=== PATIENT | female | born 1965 | race Caucasian/White ===

== ENCOUNTER 2019-08-22 19:09 | Emergency (ER) | payer OTHER ==
[~2019-08-22] VITALS: Ht 167.6 cm; Wt 62.6 kg
--- OUTSIDE RECORDS SUMMARY | 2019-08-22 19:12 | XMS REPORT ---
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 Allergies, Adverse Reactions, Alerts This patient has no known allergies or adverse reactions. Medications This patient has no known medications. Encounters Start Date/Time End Date/Time Encounter Type Admission Type Attending [facility] Care Department Encounter ID 2019-04-20 00:00:00 2019-04-20 00:00:00 Outpatient [facility] [id number] 2018-12-16 00:00:00 2018-12-16 00:00:00 Outpatient [facility] [id number] 2018-10-07 00:00:00 2018-10-07 00:00:00 Outpatient [facility] [id number] 2018-10-07 00:00:00 2018-10-07 00:00:00 Outpatient [facility] [id number] 2018-09-30 00:00:00 2018-09-30 00:00:00 Outpatient [facility] [id number] 2018-09-17 00:00:00 2018-09-17 00:00:00 Outpatient [facility] [id number] 2018-09-17 00:00:00 2018-09-17 00:00:00 Outpatient [facility] [id number] 2018-09-02 08:34:37 2018-09-02 08:34:37 Outpatient [facility] [id number] 2018-01-29 00:00:00 2018-01-29 00:00:00 Outpatient [facility] [id number] 2018-01-08 00:00:00 2018-01-08 00:00:00 Outpatient [facility] [id number] 2018-01-02 00:00:00 2018-01-02 00:00:00 Outpatient [facility] [id number] 2017-12-24 00:00:00 2017-12-24 00:00:00 Outpatient [facility] [id number] 2017-12-15 00:00:00 2017-12-15 00:00:00 Outpatient [facility] [id number] 2017-11-11 09:58:27 2017-11-11 09:58:27 Outpatient [facility] [id number] 2017-11-10 10:38:54 2017-11-10 10:38:54 Outpatient [facility] [id number] 2017-11-10 00:00:00 2017-11-10 00:00:00 Outpatient [facility] [id number] 2017-11-07 15:11:30 2017-11-07 15:11:30 Outpatient [facility] [id number] 2017-10-20 00:00:00 2017-10-20 00:00:00 Outpatient [facility] [id number] 2017-10-15 00:00:00 2017-10-15 00:00:00 Outpatient [facility] [id number] 2017-10-02 08:24:21 2017-10-02 08:24:21 Outpatient [facility] [id number] 2017-08-20 00:00:00 2017-08-20 00:00:00 Outpatient [facility] [id number] 2017-07-16 14:06:19 2017-07-16 14:06:19 Outpatient [facility] [id number] 2017-07-08 13:17:33 2017-07-08 13:17:33 Outpatient [facility] [id number] 2017-06-20 13:43:17 2017-06-20 13:43:17 Outpatient [facility] [id number] 2017-05-08 00:00:00 2017-05-08 00:00:00 Outpatient [facility] [id number] 2017-04-14 12:48:34 2017-04-14 12:48:34 Outpatient [facility] [id number] 2017-03-25 00:00:00 2017-03-25 00:00:00 Outpatient [facility] [id number] 2017-03-21 08:24:14 2017-03-21 08:24:14 Outpatient [facility] [id number] 2017-03-18 15:15:55 2017-03-18 15:15:55 Outpatient [facility] [id number] 2017-02-04 14:30:38 2017-02-04 14:30:38 Outpatient [facility] [id number] 2017-02-04 14:23:16 2017-02-04 14:23:16 Outpatient [facility] [id number] 2017-02-03 00:00:00 2017-02-03 00:00:00 Outpatient [facility] [id number] 2017-01-14 00:00:00 2017-01-14 00:00:00 Outpatient [facility] [id number] 2017-01-08 14:20:34 2017-01-08 14:20:34 Outpatient [facility] [id number] 2016-12-27 00:00:00 2016-12-27 00:00:00 Outpatient [facility] [id number] 2016-12-06 00:00:00 2016-12-06 00:00:00 Outpatient [facility] [id number] 2016-11-26 00:00:00 2016-11-26 00:00:00 Outpatient [facility] [id number] 2016-11-21 00:00:00 2016-11-21 00:00:00 Outpatient [facility] [id number] 2016-11-06 00:00:00 2016-11-06 00:00:00 Outpatient [facility] [id number] 2016-09-25 14:03:17 2016-09-25 14:03:17 Outpatient [facility] [id number] 2016-09-20 00:00:00 2016-09-20 00:00:00 Outpatient [facility] [id number] 2016-09-05 10:06:06 2016-09-05 10:06:06 Outpatient [facility] [id number] 2016-08-13 14:20:25 2016-08-13 14:20:25 Outpatient [facility] [id number] 2016-07-16 08:28:51 2016-07-16 08:28:51 Outpatient [facility] [id number] 2016-07-16 08:02:10 2016-07-16 08:02:10 Outpatient [facility] [id number] 2016-07-15 14:49:54 2016-07-15 14:49:54 Outpatient [facility] [id number]
[2019-08-22 20:23] LABS: STREPTOCOCCUS GRP A ANTIGEN NEGATIVE (NEGATIVE)
[2019-08-22 20:34] LABS: INFLUENZAE A&B ANTIGEN (RAPID) NEGATIVE (NEGATIVE)
[2019-08-22 21:14] VITALS: BP 168/88
--- NOTE | 2019-08-22 21:47 | Diagnostic Imaging Report ---
EXAMINATION: CHEST 2 VIEWS INDICATION: Sore throat, chest pain COMPARISON: None FINDINGS: TUBES and LINES: None. LUNGS: Normal lung volumes. Mild central bronchial wall thickening. No consolidations. PLEURA: No pleural effusion or pneumothorax. HEART AND MEDIASTINUM: The cardiomediastinal silhouette is unremarkable. BONES AND SOFT TISSUES: No acute osseous lesion. Soft tissues are unremarkable. UPPER ABDOMEN: No free air under the diaphragm. IMPRESSION: Subtle findings of bronchitis. Signed by: Abhishek Desai DO on 08/22/2019 9:44 PM
== END 2019-08-22 21:16 | disposition home or self-care (01) ==
LOC: ER 19:09
DX: R50.9 Fever, unspecified (principal); R05 Cough; J20.9 Acute bronchitis, unspecified
CPT/HCPCS: 71046; 83518; 87070; 87400; 99283

== ENCOUNTER 2019-09-17 03:22 | Emergency (ER) | payer OTHER ==
[~2019-09-17] VITALS: Ht 167.6 cm; Wt 62.6 kg
--- OUTSIDE RECORDS SUMMARY | 2019-09-17 03:26 | XMS REPORT ---
Author Author [facility] t Organization [facility] Address [address] [place] [address] Phone Unavailable Care Team Providers Care Satin Finisher Name Role Phone NO, PCP PCP Unavailable EDUARD CARDOZA Attphys Unavailable Concepcion SERRANO, P Yolanda Attphys Shay Boateng MD Attphys Payers Payer Name Policy Type Policy Number Effective Date Expiration Date Chino davidson [facility] MEDICAID HMOAMERIGROUP SSIxxx [id number] [address] [address] xxxxxxxxx 2018 00:0 0:00 [facility] [place] MEDICAIDTP13 SSI RECIPIENTxxxxxxxx [id number] [address] xxxxxxxxx 2016 00:00:00 [facility] Problems Condition Name Condition Details Condition Category Status Onset Date Resolution Date Last Treatment Date Treating Clinician Comments Source Prediabetes Prediabetes Disease Active 2017-11-07 00:00:00 [facility] Tobacco use disorder Tobacco use disorder Disease Active 00:00:00 [facility] Lumbar disc disorder Lumbar disc disorder Disease Active 00:00:00 [facility] Protruded lumbar disc Protruded lumbar disc Disease Active 201 09-13-22 00:00:00 [facility] Sciatica of right side Sciatica of right side Disease Active 2015-04-26 00:00:00 [facility] Levoscoliosis Levoscoliosis Disease Active 2015-04-26 00:00:00 [facility] Hypertension Hypertension Disease Active [facility] Hyperlipidemia Hyperlipidemia Disease Active [facility] Bipolar disorder Bipolar disorder Disease Active [facility] Depression Depression Disease Active [facility] GERD (gastroesophageal reflux disease) GERD (gastroesophagea l reflux disease) Disease Active [facility] Allergies, Adverse Reactions, Alerts Allergy Name Allergy Type Status Severity Reaction(s) Onset Date Inacti ve Date Treating Clinician Comments Source morphine DA Active U 2019-09-07 00:00:00 [facility] morphine DA Active U 2019-02-23 00:00:00 [facility] No Known Allergies DA Active U 2018-11-28 00:00:00 [facility] No Known Allergies DA Active U 2018-04-15 00:00:00 [facility] No Known Allergies DA Active U 2017-05-13 00:00:00 [facility] Codeine Propensity to adverse reactions to drug Active Hives 2013-09-14 00:00:00 [facility] Morphine Propensity to adverse reactions to drug Active Hives 2013-09-14 00:00:00 [facility] Family History Family Member Diagnosis Comments Start Date Stop Date Source Natural father Arthritis [facility] Natural [facility] Natural father Hypertension [facility] Maternal aunt Diabetes [facility] Natural mother Arthritis [facility] Natural mother Asthma [facility] Natural mother [facility]ension [facility] Social History Social Habit Start Date Stop Date Quantity Comments Source History of tobacco use Cigarette Smoker [facility] Cigarettes smoked current (pack per day) - Reported 00:00:00 2018-10-07 00:00:00 [facility] Cigarette pack-years 2018-10-07 00:00:00 2018-10-07 00:00:00 [facility] Alcohol intake 2018-10-07 00:00:00 2018-10-07 00:00:00 [facility] History SDOH Food Worry 2017-11-07 00:00:00 2017-11-07 00:00:00 2 [facility] History SDOH Food Scarcity 2017-11-07 00:00:00 2017-11-07 00:00:00 2 [facility] Tobacco Comment 2013-09-14 00:00:00 2013-09-14 00:00:00 smoke a pack of cigarettes a day [facility] Smoking Status Start Date Stop Date Source Current every day smoker 2018-10-07 00:00:00 [facility] Medications Ordered Medication Name Filled Medication Name Start Date Stop Da te Current Medication? Ordering Clinician Indication Dosage Frequency Signature (SIG) Comments Components Source lisinopriL (PRINIVIL) 20 mg tablet 2019-07-27 00:00:00 Y es [id number] 20mg QD Take 1 tablet by mouth daily. [facility] fenofibrate nanocrystallized (TRICOR) 145 mg tablet 09-02 00:00:00 Yes [id number] 145mg QD Take 1 tablet by mouth daily. [facility] atorvastatin (LIPITOR) 40 mg tablet 2018-09-02 00:00:00 Yes [id number] 40mg Take 1 tablet by mouth at bedtime nightly For cholesterol. [facility] gabapentin (NEURONTIN) 300 mg capsule 2018-09-02 00:00:00 Yes [id number] 300mg Take 1 capsule by mouth 3 times daily For back pain. [facility] albuterol (PROVENTIL) 2.5 mg /3 mL (0.083 %) nebulizer solut ion 2018-09-02 00:00:00 Yes [id number] 2.5mg Inhale 3 mL by mouth every 6 hours as needed for Shortness of Breath. [facility] ealt hydrOXYzine (ATARAX) 25 mg tablet 2018-09-02 00:00:00 Ye s [id number] 25mg Take 1 tablet by mouth nightly at bedtime as needed for Insomnia . [facility] omeprazole (PRILOSEC) 20 mg delayed release capsule 09-02 00:00:00 Yes [id number] 20mg QD Take 1 capsule by mouth daily. [facility] sertraline (ZOLOFT) 100 mg tablet 2018-07-28 00:00:00 Ye chino [id number] 100mg QD Take 1 tablet by mouth daily. [facility] ibuprofen (MOTRIN) 800 mg tablet 2017-07-16 00:00:00 Yes [id number] 800mg Take 1 tablet by mouth every 8 hours as needed for Pain (take wi th food). [facility] albuterol (VENTOLIN HFA,PROVENTIL HFA,PROAIR HFA) 90 mcg/act uation inhaler 2017-07-16 00:00:00 Yes [id number] 2{puff} Inhale 2 Puffs by mouth 4 times daily as needed for Wheezing or Shortness of Breath. [facility] lisinopril (PRINIVIL) 20 mg tablet 2017-07-16 00:00:00 202 00:00:00 No [id number] 20mg QD Take 1 tablet by mouth daily. [facility] LONGS FISH OIL (FISH OIL) 1,000 mg cap 2015-04-26 00:00:00 Yes [id number] Take by mouth. [facility] Immunizations Ordered Immunization Name Filled Immunization Name Date Status Comments Source Influenza Vaccine, Seasonal, Injectable 2017-03-18 00:00:0 0 Completed [facility] Ketorolac 30mg/1ml Inj (x ) 2015-06-20 00:00:00 [facility] Ketorolac 30mg/1ml Inj (x ) 2015-04-26 00:00:00 [facility] Influenza Vaccine 2015-04-16 00:00:00 Completed [facility] Influenza Vaccine 2014-04-13 00:00:00 [facility] Td <Unspecified> 2014-03-02 00:00:00 [facility] Procedures Procedure Date / Time Performed Performing Clinician [facility] e X-ray of chest, two views 2019-08-22 00:00:00 MIRIAM BARRIENTOS [facility] Plan of Care Planned Activity Planned Date Details Comments Source Future Scheduled Test 2020-02-03 00:00:00 IMM Influenza Seas onal Feb to July (>/= 19 yrs) [code = IMM Influenza Seasonal Feb to July (>/= 19 yrs)] [facility] Scheduled Test 2018-04-14 00:00:00 Colorectal Cancer Scrn Annual (FIT/FOBT) Age 50 to 75 [code = Colorectal Cancer Scrn Annual (FIT/FOBT) Age 50 to 75] [facility] Scheduled Test 2018-02-04 00:00:00 Breast Cancer Scrn (Yearly) [code = Breast Cancer Scrn (Yearly)] [facility] Encounters Start Date/Time End Date[facility] ID Source 2019-04-20 00:00:00 2019-04-20 00:00:00 Outpatient [facility] [id number] [facility] 2018-12-16 00:00:00 2018-12-16 00:00:00 Outpatient [facility] [id number] [facility] 2018-10-07 00:00:00 2018-10-07 00:00:00 Outpatient [facility] [id number] [facility] 2018-10-07 00:00:00 2018-10-07 00:00:00 Outpatient [facility] [id number] [facility] 2018-09-30 00:00:00 2018-09-30 00:00:00 Outpatient [facility] [id number] [facility] 2018-09-17 00:00:00 2018-09-17 00:00:00 Outpatient [facility] [id number] [facility] 2018-09-17 00:00:00 2018-09-17 00:00:00 Outpatient [facility] [id number] [facility] 2018-09-02 08:34:37 2018-09-02 08:34:37 Outpatient [facility] [id number] [facility] 2018-01-29 00:00:00 2018-01-29 00:00:00 Outpatient [facility] [id number] [facility] 2018-01-08 00:00:00 2018-01-08 00:00:00 Outpatient [facility] [id number] [facility] 2018-01-02 00:00:00 2018-01-02 00:00:00 Outpatient [facility] [id number] [facility] 2017-12-24 00:00:00 2017-12-24 00:00:00 Outpatient [facility] [id number] [facility] 2017-12-15 00:00:00 2017-12-15 00:00:00 Outpatient [facility] [id number] [facility] 2017-11-11 09:58:27 2017-11-11 09:58:27 Outpatient [facility] [id number] [facility] 2017-11-10 10:38:54 2017-11-10 10:38:54 Outpatient [facility] [id number] [facility] 2017-11-10 00:00:00 2017-11-10 00:00:00 Outpatient [facility] [id number] [facility] 2017-11-07 15:11:30 2017-11-07 15:11:30 Outpatient [facility] [id number] [facility] 2017-10-20 00:00:00 2017-10-20 00:00:00 Outpatient [facility] [id number] [facility] 2017-10-15 00:00:00 2017-10-15 00:00:00 Outpatient [facility] [id number] [facility] 2017-10-02 08:24:21 2017-10-02 08:24:21 Outpatient [facility] [id number] [facility] 2017-08-20 00:00:00 2017-08-20 00:00:00 Outpatient [facility] [id number] [facility] 2017-07-16 14:06:19 2017-07-16 14:06:19 Outpatient [facility] [id number] [facility] 2017-07-08 13:17:33 2017-07-08 13:17:33 Outpatient [facility] [id number] [facility] 2017-06-20 13:43:17 2017-06-20 13:43:17 Outpatient [facility] [id number] [facility] 2017-05-08 00:00:00 2017-05-08 00:00:00 Outpatient [facility] [id number] [facility] 2017-04-14 12:48:34 2017-04-14 12:48:34 Outpatient [facility] [id number] [facility] 2017-03-25 00:00:00 2017-03-25 00:00:00 Outpatient [facility] [id number] [facility] 2017-03-21 08:24:14 2017-03-21 08:24:14 Outpatient [facility] [id number] [facility] 2017-03-18 15:15:55 2017-03-18 15:15:55 Outpatient [facility] [id number] [facility] 2017-02-04 14:30:38 2017-02-04 14:30:38 Outpatient [facility] [id number] [facility] 2017-02-04 14:23:16 2017-02-04 14:23:16 Outpatient [facility] [id number] [facility] 2017-02-03 00:00:00 2017-02-03 00:00:00 Outpatient [facility] [id number] [facility] 2017-01-14 00:00:00 2017-01-14 00:00:00 Outpatient [facility] [id number] [facility] 2017-01-08 14:20:34 2017-01-08 14:20:34 Outpatient [facility] [id number] [facility] 2016-12-27 00:00:00 2016-12-27 00:00:00 Outpatient [facility] [id number] [facility] 2016-12-06 00:00:00 2016-12-06 00:00:00 Outpatient [facility] [id number] [facility] 2016-11-26 00:00:00 2016-11-26 00:00:00 Outpatient [facility] [id number] [facility] 2016-11-21 00:00:00 2016-11-21 00:00:00 Outpatient [facility] [id number] [facility] 2016-11-06 00:00:00 2016-11-06 00:00:00 Outpatient [facility] [id number] [facility] 2016-09-25 14:03:17 2016-09-25 14:03:17 Outpatient [facility] [id number] [facility] 2016-09-20 00:00:00 2016-09-20 00:00:00 Outpatient [facility] [id number] [facility] 2016-09-05 10:06:06 2016-09-05 10:06:06 Outpatient [facility] [id number] [facility] 2016-08-13 14:20:25 2016-08-13 14:20:25 Outpatient [facility] [id number] [facility] 2016-07-16 08:28:51 2016-07-16 08:28:51 Outpatient [facility] [id number] [facility] 2016-07-16 08:02:10 2016-07-16 08:02:10 Outpatient [facility] [id number] [facility] 2016-07-15 14:49:54 2016-07-15 14:49:54 Outpatient [facility] [id number] [facility] Results Test Description Test Time Test Comments Results Result Comments Source - CT ABD PELVIS W/O CONT 2019-09-16 02:57:00 N adele: YAKOV QUIROZ [facility] : 1965 Age/S: 53 / F [address] Unit #: [id number] Loc: [place] [address] Phys: Rachel Turpin DO Acct: [id number] Dis Date: Status: PRE ER PHONE #: [phone] Exam Date: 09/16/2019 0240 FAX #: [phone] Reason: FLANK PAIN, R/O KIDNEY STONE EXAMS: CPT CODE: [id number] CT ABD PELVIS W/O CONT 51135 AFTER HOURS SERVICE ON: 09/16/2019 2:[address] Scan of the Abdomen and Pelvis Without Contrast Location Code M12 History: FLANK PAIN, R/O KIDNEY STONE Technique: Axial and reconstructed coronal scans were performed on a helical scanner pre oral and IV contrast. Study is limited secondary to lack of oral and IV contrast. One or more of the following dose reduction techniques were used: Automated exposure control, adjustment of the mA and/or kV according to patient size, and/or utilization of iterative reconstruction technique. Findings: Study is motion degraded. LIVER: No significant findings. GALLBLADDER/BILIARY: No significant findings. PANCREAS: No significant findings. SPLEEN: No significant findings. ADRENALS: No significant findings. KIDNEYS: Right kidney is unremarkable. There is no hydronephrosis or nephrolithiasis. There is mild fullness in the left renal collecting system and perinephric stranding. There is also mild fullness in the left ureter but no evidence of a ureteral or bladder calculus. Finding may be consistent with a recently passed calculus. BLADDER: Mild areas noted in the bladder lumen likely from recent catheterization. There is no bladder wall thickening. GASTROINTESTINAL: No significant findings. The appendix is unremarkable. OTHER: Uterus is surgically absent.. IMPRESSION: Mild fullness in the left renal collecting system without a urinary calculus, likely from a recently passed calculus. PAGE 1 Signed Report (CONTINUED) Name: YAKOV QUIROZ [facility] : 1965 Age/S: 53 / F [address] Unit #: [id number] Loc: [place] [address] Phys: Rachel Turpin DO Acct: [id number] Dis Date: Status: PRE ER PHONE #: [phone] Exam Date: 09/16/2019 0240 FAX #: [phone] Reason: FLANK PAIN, R/O KIDNEY STONE EXAMS: CPT CODE: [id number] CT ABD PELVIS W/O CONT 97317 <Continued> at 0257 Reported and signed by: Werner Sandoval M.D. CC: Rachel Turpin DO Technologist:ANDREW GENTILE RT CTDI: DLP: Trnscb Date/Time: 09/16/2019 (256) [email or web address] Orig Print D/T: S: 09/16/2019 (0305) PAGE 2 Signed Report - CT ABD PELVIS W/O CONT 2019-09-16 02:57:00 N adele: GABRIELLAYAKOV [facility] : 1965 Age/S: 53 / F [address] [facility] Unit #: [id number] Loc: [place] [address] Phys: Rachel Turpin DO Acct: [id number] Dis Date: Status: PRE ER PHONE #: [phone] Exam Date: 09/16/2019 0240 FAX #: [phone] Reason: FLANK PAIN, R/O KIDNEY STONE EXAMS: CPT CODE: [id number] CT ABD PELVIS W/O CONT 20468 AFTER HOURS SERVICE ON: 09/16/2019 2:[address] Scan of the Abdomen and Pelvis Without Contrast Location Code M12 History: FLANK PAIN, R/O KIDNEY STONE Technique: Axial and reconstructed coronal scans were performed on a helical scanner pre oral and IV contrast. Study is limited secondary to lack of oral and IV contrast. One or more of the following dose reduction techniques were used: Automated exposure control, adjustment of the mA and/or kV according to patient size, and/or utilization of iterative reconstruction technique. Findings: Study is motion degraded. LIVER: No significant findings. GALLBLADDER/BILIARY: No significant findings. PANCREAS: No significant findings. SPLEEN: No significant findings. ADRENALS: No significant findings. KIDNEYS: Right kidney is unremarkable. There is no hydronephrosis or nephrolithiasis. There is mild fullness in the left renal collecting system and perinephric stranding. There is also mild fullness in the left ureter but no evidence of a ureteral or bladder calculus. Finding may be consistent with a recently passed calculus. BLADDER: Mild areas noted in the bladder lumen likely from recent catheterization. There is no bladder wall thickening. GASTROINTESTINAL: No significant findings. The appendix is unremarkable. OTHER: Uterus is surgically absent.. IMPRESSION: Mild fullness in the left renal collecting system without a urinary calculus, likely from a recently passed calculus. PAGE 1 Signed Report (CONTINUED) Name: YAKOV QUIROZ [facility] : 1965 Age/S: 53 / F [address] [facility] Unit #: [id number] Loc: [place] [address] Phys: Rachel Turpin DO Acct: [id number] Dis Date: Status: PRE ER PHONE #: [phone] Exam Date: 09/16/2019 0240 FAX #: [phone] Reason: FLANK PAIN, R/O KIDNEY STONE EXAMS: CPT CODE: [id number] CT ABD PELVIS W/O CONT 74665 <Continued> at 0257 Reported and signed by: Werner Sandoval M.D. CC: Rachel Turpin DO Technologist:RT KELSI CTDI: DLP: Trnscb Date/Time: 09/16/2019 (256) [email or web address] Orig Print D/T: S: 09/16/2019 (0301) PAGE 2 Signed Report - XR CHEST 1 V 2019-09-16 02:26:00 FAX: Rachel Turpin DO [place]: B St: PRE -- [facility] 1965 Age/S: 53/F [address] Unit #: [id number] Loc: [place] [address] Phys: Rachel Turpin DO Acct: [id number] Dis Date: Status: PRE ER PHONE #: [phone] Exam Date: 09/16/2019216 FAX #: [phone] Reason: CHEST PAIN EXAMS: CPT CODE: [id number] XR CHEST 1 V 96037 AFTER HOURS SERVICE ON: 09/16/2019 2:25 AM AP Portable Chest Location Code M12 HISTORY: CHEST PAIN FINDINGS: Study is limited by shallow inspiration. There are no pleural effusions. There is no pneumothorax. Cardiac silhouette and mediastinum appear within normal limits. IMPRESSION: No active pulmonary findings. at 0226 Reported and signed by: Werner Sandoval M.D. 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 LUNGS: Normal lung volumes. Mild central bronchial wall thickening. No consolidations. PLEURA: No pleural effusion or pneumothorax. HEART AND MEDIASTINUM: The cardiomediastinal silhouette is unremarkable. BONES AND SOFT TISSUES: No acute osseous lesion. Soft tissues are unremarkable. UPPER ABDOMEN: No free air under the diaphragm. IMPRESSION: Subtle findings of bronchitis. Signed by: Abhishek Salazar DO on 08/22/2019 9:44 PM Dictated By: ABHISHEK SALAZAR DO 43 Transcribed By: BASHIR on 08/22/192143 COPY TO: MIRIAM BARRIENTOS NP Influenza Virus Types A,B Antigen 2019-08-22 20:34:00 Test Item Influenza Virus Types A,B Antigen (test code = 46115-3) [facility] [id number] 20:23:00* Test Item Value Reference Range Interpretation Comments Group A Streptococcus Screen (test code = 69538-5) NEGATIVE NEG ATIVE [facility]- XR WRIST 3 + V [id number] 00:05:00 FAX: Lashanda Cotto NP [place]: St: REG Name: YAKOV HERNANDES [facility] : [birth year] Age/S: 53/F [address] [facility] Unit #: [id number] Loc: [place] [address] Phys: Lashanda Cotto NP Acct: [id number] Dis Date: Status: REG ER PHONE #: [phone] Exam Date: 05/26/2019 0000 FAX #: [phone] Reason: fall, pain EXAMS: CPT CODE: [id number] XR WRIST 3 + V RT [id number] LOCATION: Q15 HISTORY: 53-year-old female who suffered a fall. COMMENT: Radiographs of this patient's left knee, right shoulder, and right wrist w ere obtained. LEFT KNEE: Frontal, oblique, and later al projections were included. The skeleton is intact. The joint sp aces and soft tissues are unremarkable. RIGHT SHOULDER: Frontal projections were obtained with the arm internally and ex ternally rotated. A scapular Y-view was included. The skeleton is intact. The joint spaces and soft tissues are unremarkable. RIGHT WRIST: Frontal, oblique, and lateral radiographs were includ ed. The skeleton is intact. The joint spaces and soft tissues are u nremarkable. IMPRESSION: Unremarkable radiogra phic examinations of this patient's left knee, right shoulder, and right wrist. at 0005 Reported and signed by: Lorenzo Bourne M.D. CC: Lashanda Cotto NP Technologist: Sherley Medrano Trnscrd Date/Time/By: 05/27/2019 (0005) : By: [email or web address] Orig Print D/T: S: 05/27/2019 (0008) PAGE 1 Signed Report - XR SHOULDER 2 + V RT 2019-05-27 00:05:00 FAX: Lashanda Cotto NP [place]: St: REG Name: Chet BEALYAKOV LOWRY [facility] : [birth year] Age/S: 53/F [address] [facility] Unit #: [id number] Loc: [place] [address] Phys: Lashanda Cotto NP Acct: [id number] Dis Date: Status: REG ER PHONE #: [phone] Exam Date: 05/26/2019 0000 FAX #: [phone] Reason: fall, pain EXAMS: CPT CODE: [id number] XR SHOULDER 2 + V RT [id number] LOCATION: Q15 HISTORY: 53-year-old female who suffered a fall. COMMENT: Radiographs of this patient's left knee, right shoulder, and right wrist w ere obtained. LEFT KNEE: Frontal, oblique, and later al projections were included. The skeleton is intact. The joint sp aces and soft tissues are unremarkable. RIGHT SHOULDER: Frontal projections were obtained with the arm internally and ex ternally rotated. A scapular Y-view was included. The skeleton is intact. The joint spaces and soft tissues are unremarkable. RIGHT WRIST: Frontal, oblique, and lateral radiographs were includ ed. The skeleton is intact. The joint spaces and soft tissues are u nremarkable. IMPRESSION: Unremarkable radiogra phic examinations of this patient's left knee, right shoulder, and right wrist. at 0005 Reported and signed by: Lorenzo Bourne M.D. CC: Lashanda Cotto NP Technologist: Sherley Medrano [facility] Date/Time/By: 05/27/2019 (0005) : By: [email or web address] Orig Print D/T: S: 05/27/2019 (0008) PAGE 1 Signed Report - XR KNEE 3 V [id number] 00:05:00 FAX: Lashanda Cotto NP [place]: St: REG Name: YAKOV HERNANDES [facility] : [birth year] Age/S: 53/F [address] [facility] Unit #: [id number] Loc: [place] [address] Phys: Lashanda Cotto NP Acct: [id number] Dis Date: Status: REG ER PHONE #: [phone] Exam Date: 05/26/2019 0000 FAX #: [phone] Reason: fall, pain EXAMS: CPT CODE: [id number] XR KNEE 3 [place] LT [address] LOCATION: Q15 HISTORY: 53-year-old female who suffered a fall. COMMENT: Radiographs of this patient's left knee, right shoulder, and right wrist w ere obtained. LEFT KNEE: Frontal, oblique, and later al projections were included. The skeleton is intact. The joint sp aces and soft tissues are unremarkable. RIGHT SHOULDER: Frontal projections were obtained with the arm internally and ex ternally rotated. A scapular Y-view was included. The skeleton is intact. The joint spaces and soft tissues are unremarkable. RIGHT WRIST: Frontal, oblique, and lateral radiographs were includ ed. The skeleton is intact. The joint spaces and soft tissues are u nremarkable. IMPRESSION: Unremarkable radiogra phic examinations of this patient's left knee, right shoulder, and right wrist. at 0005 Reported and signed by: Lorenzo Bourne M.D. CC: Lashanda Cotto NP Technologist: Sherley Medrano Trniard Date/Time/By: 05/27/2019 (0005) : By: [email or web address] Orig Print D/T: S: 05/27/2019 (0008) PAGE 1 Signed Report - XR SCAPULA COMP RT 2019-02-23 16:35:00 FAX: Myla Cervantes NP [place]: St: REG Name: Chet BEALYAKOV LOWRY [facility] : [birth year] Age/S: 53/F [address] Unit #: [id number] Loc: [place] [address] Phys: Myla Cervantes NP Acct: [id number] Dis Date: Status: REG ER PHONE #: [phone] Exam Date: 02/23/2019 1541 FAX #: [phone] Reason: pain status post fall EXAMS: CPT CODE: [id number] [place] [address] CLINICAL HISTORY: pain TECHNIQUE: Right-sided rib series as well as 2 views of the right scapula and 3 views of the right shoulder COMPARISON: None FINDINGS: No fracture is seen in the scanned right upper extremity or in the right hemithorax. Specifically no displaced rib fractures are seen. The glenohumeral and acromial clavicular joints are within normal limits. The right lung and the visualized portion of the left lung are clear. IMPRESSION: No right-sided rib fracture and no fracture or dislocation in the scanned right upper extr emity. Location: [facility] at 1635 Reported and signed by: Tj Cope MD CC: Myla Cervantes NP Technologist: MELCHOR LEDBETTER RT(R); Radha Delacruz RT(R) Trnscrd Date/Time/By: 02/23/2019 (2883) : By: [email or web address] Orig Print D /T: S: 02/23/2019 (6372) PAGE 1 S igned Report - XR SHOULDER 2 + V [id number] 16:35:00 FAX: Myla Cervantes NP [place]: St: REG Name: Chet BEALERYAKOV [facility] : [birth year] Age/S: 53/F [address] [facility] Unit #: [id number] Loc: [place] [address] Phys: Myla Cervantes NP Acct: [id number] Dis Date: Status: REG ER PHONE #: [phone] Exam Date: 02/23/2019 1541 FAX #: [phone] Reason: pain EXAMS: CPT CODE: [id number] XR SHOULDER 2 + V RT [address]891 CLINICAL HISTORY: pain TECHNIQUE: Right-sided rib series as well as 2 views of the right scapula and 3 views of the right shoulder COMPARISON: None FINDINGS: No fracture is seen in the scanned right upper extremity or in the right hemithorax. Specifically no displaced rib fractures are seen. The glenohumeral and acromial clavicular joints are within normal limits. The right lung and the visualized portion of the left lung are clear. IMPRESSION: No right-sided rib fracture and no fracture or dislocation in the scanned right upper extr emity. Location: [facility] at 1635 Reported and signed by: Tj Cope MD CC: Myla Cervantes NP Technologist: RT GABRIEL(R) Trnscrd Date/Time/By: 02/23/2019 (6337) : By: [email or web address] Orig Print D /T: S: 02/23/2019 (5385) PAGE 1 S igned Report - XR RIBS UNI 2 V [id number] 16:35:00 FAX: Myla Cervantes NP [place]: St: REG Name: YAKOV HERNANDES [facility] : [birth year] Age/S: 53/F [address] [facility] Unit #: [id number] Loc: [place] [address] Phys: Myla Cervantes NP Acct: [id number] Dis Date: Status: REG ER PHONE #: [phone] Exam Date: 02/23/2019 1549 FAX #: [phone] Reason: pain EXAMS: CPT CODE: [id number] XR RIBS UNI 2 [place] RT [address] CLINICAL HISTORY: pain TECHNIQUE: Right-sided rib series as well as 2 views of the right scapula and 3 views of the right shoulder COMPARISON: None FINDINGS: No fracture is seen in the scanned right upper extremity or in the right hemithorax. Specifically no displaced rib fractures are seen. The glenohumeral and acromial clavicular joints are within normal limits. The right lung and the visualized portion of the left lung are clear. IMPRESSION: No right-sided rib fracture and no fracture or dislocation in the scanned right upper extr emity. Location: [facility] at 1635 Reported and signed by: Tj Cope MD CC: Myla Cervantes NP Technologist: MELCHOR LEDBETTER, RT(R); Radha Delacruz RT(R) Trnscrd Date/Time/By: 02/23/2019 (7350) : By: [email or web address] Orig Print D /T: S: 02/23/2019 (5276) PAGE 1 S igned Report CBC W/O [id number] 22:11:00* Test Item Value Reference Range Interpretation Comments WHITE BLOOD CELL (test code = WBC) 14.7 K/mm3 4.5-12.5 H RED BLOOD CELL (test code = RBC) 4.70 mill/mm3 3.7-5.2 N HEMOGLOBIN (test code = HGB) 14.1 gram/dL 11.5-15.5 N HEMATOCRIT (test code = HCT) 42.6 % 36.0-46.0 N MEAN CELL VOLUME (test code = MCV) 90.6 fL 80-98 N MEAN CELL HGB (test code = MCH) 30.0 picogram 27.0-33.0 N MEAN CELL HGB CONCETRATION (test code = MCHC) 33.1 gram/dL 33.0-36. 0 N RED CELL DISTRIBUTION WIDTH (test code = RDW) 13.6 % 11.6-16. 2 N PLATELET COUNT (test code = PLT) 252 K/mm3 150-450 N MEAN PLATELET VOLUME (test code = MPV) 12.4 fL 6.7-11.0 H TROPONIN I [id number] 22:07:00* Test Item Value Reference Range Interpretation Comments TROPONIN I RAPID (test code = TROPIRAP) 0.00 ng/mL <0.08 Please Note New Reference Range 0.00-0.079 ng/mL - Negative>or= 0.08 ng/mL - Positive The use of serial sampling and testing protocol is arecommended practice.An elevated troponin level alone is often not sufficient fordiagnosis of myocardial infarction. Troponin results obtained by different assays may vary.Evaluation of the extent of myocardial damage based onincrease of troponin would be valid only if similarmethodology is used. BASIC METABOLIC [id number] 22:05:00* Test Item Value Reference Range Interpretation Comments SODIUM (test code = NA) 137 mmol/L 136-145 N POTASSIUM (test code = K) 4.2 mmol/L 3.5-5.1 N CHLORIDE (test code = CL) 103.0 mmol/L 98-107 N CARBON DIOXIDE (test code = CO2) 33.0 mmol/L 21-32 H ANION GAP (test code = GAP) 5.2 10-20 L GLUCOSE (test code = GLU) 77 mg/dL 74-106 N BLOOD UREA NITROGEN (test code = BUN) 22 mg/dL 7-18 H GLOMERULAR FILTRATION RATE (test code = GFR) 47 mL/min >=60 Estimated GFR by using Modified MDRD formula.Chronic kidney disease is defined as either kidney damageor GFR <60 mL/min/1.73 m2 for >3 months. CREATININE (test code = CREAT) 1.20 mg/dL 0.55-1.02 H Note change in reference range due to change in reagent. BUN/CREATININE RATIO (test code = BUN/CREA) 17.9 10-20 N CALCIUM (test code = CA) 9.6 mg/dL 8.5-10.1 N [id number] 22:05:00* Test Item Value Reference Range Interpretation Comments TROPONIN-I (test code = TROPI) <0.015 ng/mL 0-0.045 N BASIC METABOLIC [id number] 21:56:00* Test Item Value Reference Range Interpretation Comments SODIUM (test code = NA) 137 mmol/L 136-145 N POTASSIUM (test code = K) 4.2 mmol/L 3.5-5.1 N CHLORIDE (test code = CL) 103.0 mmol/L 98-107 N CARBON DIOXIDE (test code = CO2) mmol/L 21-32 ANION GAP (test code = GAP) 10-20 GLUCOSE (test code = GLU) mg/dL 74-106 BLOOD UREA NITROGEN (test code = BUN) mg/dL 7-18 GLOMERULAR FILTRATION RATE (test code = GFR) mL/min >=60 CREATININE (test code = CREAT) mg/dL 0.55-1.02 BUN/CREATININE RATIO (test code = BUN/CREA) 10-20 CALCIUM (test code = CA) 9.6 mg/dL 8.5-10.1 N [id number] 21:56:00* Test Item Value Reference Range Interpretation Comments TROPONIN-I (test code = TROPI) ng/mL 0-0.045 - XR CHEST 1 [id number] 21:29:00 FAX: Rachel Turpin DO [place]: B St: REG Name: YAKOV HERNANDES [facility] : [birth year] Age/S: 53/F [address] [facility] Unit #: [id number] Loc: [place] [address] Phys: Rachel Turpin DO Acct: [id number] Dis Date: Status: REG ER PHONE #: [phone] Exam Date: 11/28/20182124 FAX #: [phone] Reason: CHEST PAIN EXAMS: CPT CODE: [id number] XR CHEST 1 V 68637 HISTORY: Chest pain. COMPARISON: January 17, 2018. No acute infiltrates, effusion or congestion is noted. The cardiac and mediastinal silhouette are w ithin normal limits. IMPRESSION: No acute in filtrates, effusion or congestion. at 2129 Reported and signed by: Juan Jose Yancey M.D. CC: Rachel Turpin DO Technologist: FARHAN ALMONTE(R) Trnscrd Date/Time/By: 11/28/2018 (2128) : By: [email or web address] Orig Print D/T: S: 11/28/2018 (3068) PAGE 1 Signed Report - XR T-SPINE 3 VIEWS 2018-10-12 13:24:00 FAX: Jeison Bourne MD [phone] [place]: St: REG Name: YAKOV HERNANDES [facility] : [birth year] Age/S: 52/F [address] [facility] Unit #: [id number] Loc: [place] [address] Phys: Jeison Bourne MD Acct: [id number] Dis Date: Status: REG ER PHONE #: [phone] Exam Date: 10/12/2018 1315 FAX #: [phone] Reason: back pain EXAMS: CPT CODE: [id number] XR T-SPINE 3 VIEWS 99923 HISTORY: Back pain. COMPARISON: None available. Lumbar spine series, 3 views: No acute fracture or dislocation. Vertebral body heights are maintai nicolasa. Disc spaces are preserved. SI joints are unremarkable. IMPR ESSION: No acute fracture or dislocation. Vertebral body heigh ts are maintained. AP and lateral view of the T-spine: No acute fracture or dislocation. Vertebr al body heights are maintained. No paravertebral lesions. Disc spaces ar e preserved. IMPRESSION: No acute fracture o r dislocation. Vertebral body heights are maintained. Electr onically Signed by Susan Yancey on 10/12/2018 at 1324 Reported and signed by: Juan Jose Yancey M.D. CC: Jeison Bourne MD Technologist: RT YVONNE(R) Trnscrd Date/Time/By: 10/12/2018 (0394) : By: [email or web address] Orig Print D/T: S: 10/12/2018 (2118) PAGE 1 Signed Report - XR L-SPINE 2/3 [id number] 13:24:00 FAX: Jeison Bourne MD [phone] [place]: B St: REG Name: YAKOV HERNANDES [facility] : [birth year] Age/S: 52/F [address] [facility] Unit #: [id number] Loc: [place] [address] Phys: Jeison Bourne MD Acct: [id number] Dis Date: Status: REG ER PHONE #: [phone] Exam Date: 10/12/2018 1321 FAX #: [phone] Reason: back pain EXAMS: CPT CODE: [id number] XR L-SPINE 2/3 VIEWS 75025 HISTORY: Back pain. COMPARISON: None available. Lumbar spine series, 3 views: No acute fracture or dislocation. Vertebral body heights are maintai nicolasa. Disc spaces are preserved. SI joints are unremarkable. IMPR ESSION: No acute fracture or dislocation. Vertebral body heigh ts are maintained. AP and lateral view of the T-spine: No acute fracture or dislocation. Vertebr al body heights are maintained. No paravertebral lesions. Disc spaces ar e preserved. IMPRESSION: No acute fracture o r dislocation. Vertebral body heights are maintained. Electr onically Signed by Susan Yancey on 10/12/2018 at 1324 Reported and signed by: Juan Jose Yancey M.D. CC: Jeison Bourne MD Technologist: RT YVONNE(R) Trnscrd Date/Time/By: 10/12/2018 (5393) : By: [email or web address] Orig Print D/T: S: 10/12/2018 (7963) PAGE 1 Signed Report - XR SHOULDER 2 + V [id number] 13:19:00 FAX: Jeison Bourne MD [phone] [place]: B St: REG Name: YAKOV HERNANDES [facility] : [birth year] Age/S: 52/F [address] [facility] Unit #: [id number] Loc: [place] [address] Phys: Jeison Bourne MD Acct: [id number] Dis Date: Status: REG ER PHONE #: [phone] Exam Date: 10/12/2018 1305 FAX #: [phone] Reason: shoulder pain EXAMS: CPT CODE: [id number] XR SHOULDER 2 + V [place] [address]367 HISTORY: Shoulder pain. COMPARISON: June 13, 2017. 3 views of the right shoulder: No acute fracture or dislocation. Narrowed AC joint. The scapula, glenoid and coracoid are normal in appearance. Soft tissues are normal. Bone mineralization is normal. IMPRESSION: No acute fracture or dislocation. at 1311 Reported and signed by: Paul Yancey M.D. CC: Jeison Bourne MD Technologist: RT YVONNE(Lana) Trnscrd Date/Time/By: 10/12/2018 (8041) : By: [email or web address] Orig Print D/T: S: 10/12/2018 (3377) PAGE 1 Signed Report
--- OUTSIDE RECORDS SUMMARY | 2019-09-17 03:26 | XMS REPORT | Clinical Summary ---
Author Author [facility] ict Organization [facility] ict Address Unknown Phone Unavailable Care Team Providers Care Engineering Supervisor Name Role Phone Mary Marks PROPERTY CLAIMS MANAGER PCP Yolanda Javier MD PCP Allergies Comments Active Allergy Reactions Severity Noted Date Codeine Hives 09/14/2013 Morphine Hives 09/14/2013 Medications End Date Status Medication Sig Dispensed Refills Start Date Active LONGS FISH OIL (FISH OIL) Take by 0 04/05 1,000 mg capIndications: mouth. 5 Other and unspecified hyperlipidemia Active ibuprofen (MOTRIN) 800 mg Take 1 tablet 60 tablet 1 tabletIndications: by mouth 8 Chronic low back pain every 8 hours with sciatica, sciatica as needed for laterality unspecified, Pain (take unspecified back pain with food). laterality Active albuterol (VENTOLIN Inhale 2 6.7 g 3 HFA,PROVENTIL HFA,PROAIR Puffs by 8 HFA) 90 mcg/actuation mouth 4 times inhalerIndications: daily as Wheezing, Cough needed for Wheezing or Shortness of Breath. Active sertraline (ZOLOFT) 100 Take 1 tablet 90 tablet 1 mg tabletIndications: by mouth 9 Mild single current daily. episode of major depressive disorder Active fenofibrate Take 1 tablet 90 tablet 1 nanocrystallized (TRICOR) by mouth 9 145 mg tabletIndications: daily. Hyperlipidemia, unspecified hyperlipidemia type Active atorvastatin (LIPITOR) 40 Take 1 tablet 90 tablet 1 mg tabletIndications: by mouth at 9 Hyperlipidemia, bedtime unspecified nightly For hyperlipidemia type cholesterol. Active gabapentin (NEURONTIN) Take 1 270 capsule 1 300 mg capsule by 9 capsuleIndications: mouth 3 times Chronic low back pain daily For with sciatica, sciatica back pain. laterality unspecified, unspecified back pain laterality Active albuterol (PROVENTIL) 2.5 Inhale 3 mL 75 mL 2 mg /3 mL (0.083 %) by mouth 9 nebulizer every 6 hours solutionIndications: as needed for Reactive airway disease Shortness of without complication, Breath. unspecified asthma severity, unspecified whether persistent Active hydrOXYzine (ATARAX) 25 Take 1 tablet 30 tablet 3 mg tabletIndications: by mouth 9 Insomnia, unspecified nightly at type bedtime as needed for Insomnia. Active omeprazole (PRILOSEC) 20 Take 1 90 capsule 1 0 mg delayed release capsule by 9 capsuleIndications: mouth daily. Gastroesophageal reflux disease without esophagitis Active lisinopriL (PRINIVIL) 20 Take 1 tablet 30 tablet 0 mg tabletIndications: by mouth 0 Essential hypertension daily. 07/27/2019 Discontinued (Reorder) lisinopril (PRINIVIL) 20 Take 1 tablet 90 tablet 1 mg tabletIndications: by mouth 8 Essential hypertension daily. Active Problems Problem Noted Date Prediabetes 11/07/2017 Tobacco use disorder 07/16/2017 Lumbar disc disorder 04/26/2015 Protruded lumbar disc 04/26/2015 Sciatica of right side 04/26/2015 Levoscoliosis 04/26/2015 Hypertension Hyperlipidemia Bipolar disorder Depression GERD (gastroesophageal reflux disease) Encounters Care Team Description Date Type Specialty Yolanda Javier MD Essential hypertension 07/27/2019 Orders Only Family Practice Yolanda Javier MD Chronic low back pain with sciatica, sci atica laterality unspecified, unspecified back pain laterality; Essential hypertension 07/27/2019 Refill Family Practice Yolanda Javier MD Follow up (Primary Dx) 01/04/2019 Orders Only Family Practice Nicanor Boateng III, MD Hyperlipidemia, unspecified hyperlipidem ia type 12/31/2018 Refill Family Practice Yolanda Javier MD Essential hypertension 12/31/2018 Refill Family Practice after 09/16/2018 Immunizations Name Administration Dates Next Due Influenza Vaccine 04/16/2015, 04/13/2014, (Deferred: Patient Refused) Influenza Vaccine, 03/18/2017 Seasonal, Injectable Ketorolac 30mg/1ml Inj 06/20/2015, 04/26/2015 (x ) Td <Unspecified> 03/02/2014 Tdap Tetanus, diphtheria, 03/02/2014 (Deferred: Melanie ent already had this acellular pertussis immunization) Vaccine Family History Medical History Relation Name Comments Arthritis Father Cancer Father Hypertension Father Diabetes Maternal Aunt Arthritis Mother Asthma Mother Hypertension Mother Relation Name Status Comments Brother Alive Daughter Alive Daughter Alive Father Maternal Aunt Maternal Grandfather Maternal Grandmother Mother Paternal Grandfather Paternal Grandmother Sister Alive Sister Alive Social History Date Tobacco Use Types Packs/Day Years Used Current Every Day Smoker Cigarettes 1 34 Smokeless Tobacco: Never Used Tobacco Cessation: Ready to Quit: No; Co unseling Given: Yes Comments: smoke a pack of cigarettes a day Drinks/Week oz/Week Comments Alcohol Use 0 Standard drinks or equivalent 0.0 No Food Insecurity Answer Date Recorded Within the past 12 months, you worried that your Sometimes true 11/07/2017 food would run out before you got money to buy more. Within the past 12 months, the food you bought Sometimes t rue 11/07/2017 just didn't last and you didn't have mo anthony to get more. Sex Assigned at Date Recorded Not on file Industry Job Start Date Occupation Not on file Not on file Not on file Travel End Travel History Travel Start No recent travel history available. Last Filed Vital Signs Not on file Plan of Treatment Health Maintenance Due Date Last Done Comments Breast Cancer Scrn 02/04/2018 02/04/2017, 016, 04/26/2015, (Yearly) Additional history exists Colorectal Cancer Scrn 04/14/2018 04/14/2017 Annual (FIT/FOBT) Age 50 to 75 IMM Influenza Seasonal 02/03/2020 03/18/2017 Oct to July (>/= 19 yrs) Goals Goal Patient Associated Recent Progress Patient-Stat Aut hor Goal Type Problems ed? Eat Healthy Lifestyle [place] Results Not on fileafter 09/16/2018 Insurance Type Payer Benefit Subscriber ID Effective Phone Address Plan / Dates Group [employer] HMO [employer] xxxxxxxxx 2018-P [phone] [id number] [place] [address] [place] [id number] SSI xxxxxxxxx 2016-P [phone] [id number] [place] [address]
[2019-09-17] MEDS ORDERED: ONDANSETRON HCL INJ 2MG/ML 2ML 2 MG/ML VIAL IV STA (03:30)
[2019-09-17] MEDS ORDERED: KETOROLAC TROMETHAMINE 30 MG/ML VIAL IV STA (03:30)
--- OUTSIDE RECORDS SUMMARY | 2019-09-17 03:32 | XMS REPORT | Clinical Summary ---
Author Author [facility] Organization [facility] ict Address Unknown Phone Unavailable Care Team Providers Care Protection Manager Name Role Phone Mary Marks WOODS RIDER PCP Yolanda Javier MD PCP Allergies Comments [...] Type Problems ed? Eat Healthy Lifestyle Ya [place] Results Not on fileafter 09/16/2018 Insurance Type Payer Benefit Subscriber ID Effective Phone Address Plan / Dates Group [employer]ICA[employer] HMO [employer] xxxxxxxxx 2018-P [address] [address] [place] [address] [place] MED[place] [id number] SSI xxxxxxxxx 2016-P [phone] [place] [address]
--- OUTSIDE RECORDS SUMMARY | 2019-09-17 03:32 | XMS REPORT ---
Author Author [facility] t Organization [facility] Address [address] [place] [place] [address] Phone Unavailable Care Team Providers Care Senior Erp Consultant Name Role Phone NO, PCP PCP Unavailable EDUARD CARDOZA Attphys Unavailable Concepcion SERRANO, P Yolanda Attphys Shay Boateng MD Attphys Payers Payer Name Policy Type Policy Number Effective Date Expiration Date Chino davidson [facility] MEDICAID HMOAMERIGROUP SSIxxx [id number] [address] xxxxxxxxx 2018 00:0 0:00 [facility] [place] MEDICAIDTP13 SSI RECIPIENTxxxxxxxx [id number], [place] [address] xxxxxxxxx 2016 00:00:00 [facility] Problems Condition Name Condition Details Condition Category Status Onset Date Resolution Date Last Treatment Date Treating Clinician Comments Source Prediabetes Prediabetes Disease Active 2017-11-07 00:00:00 [facility] Tobacco use disorder Tobacco use disorder Disease Active 00:00:00 [facility] Lumbar disc disorder Lumbar disc disorder Disease Active 00:00:00 [facility] Protruded lumbar disc Protruded lumbar disc Disease Active 201 09-13-22 00:00:00 [facility] Sciatica of right side Sciatica of right side Disease Active 2015-04-26 00:00:00 [facility] Levoscoliosis Levoscoliosis Disease Active 2015-04-26 00:00:00 [facility] Hypertension Hypertension Disease Active [facility] Hyperlipidemia Hyperlipidemia Disease Active [facility] Bipolar disorder Bipolar disorder Disease Active [facility] Depression Depression Disease Active [facility] GERD (gastroesophageal reflux disease) GERD (gastroesophagea l reflux disease) Disease [facility] Allergies, Adverse Reactions, Alerts Allergy Name Allergy Type Status Severity Reaction(s) Onset Date Inacti ve Date Treating Clinician Comments Source morphine DA Active U 2019-09-07 00:00:00 [facility] morphine DA Active U 2019-02-23 00:00:00 [facility] No Known Allergies DA Active U 2018-11-28 00:00:00 [facility] No Known Allergies DA Active U 2018-04-15 00:00:00 [facility] No Known Allergies DA Active U 2017-05-13 00:00:00 [facility] Codeine Propensity to adverse reactions to drug Active Hives 2013-09-14 00:00:00 [facility] Morphine Propensity to adverse reactions to drug Active Hives 2013-09-14 00:00:00 [facility] Family History Family Member Diagnosis Comments Start Date Stop Date Source Natural father Arthritis [facility] Natural [facility] Natural father Hypertension [facility] Maternal aunt Diabetes [facility] Natural mother Arthritis [facility] Natural mother Asthma [facility] Natural mother Hypertension [facility] Social History Social Habit Start Date Stop Date Quantity Comments Source History of tobacco use Cigarette Smoker [facility] Sex Assigned At [facility] Cigarettes smoked current (pack per day) - Reported 00:00:00 2018-10-07 00:00:00 [facility] Cigarette pack-years 2018-10-07 00:00:00 2018-10-07 00:00:00 [facility] Alcohol intake 2018-10-07 00:00:00 2018-10-07 00:00:00 [facility] History SDOH Food Worry 2017-11-07 00:00:00 2017-11-07 00:00:00 2 [facility] History SDOH Food Scarcity 2017-11-07 00:00:00 2017-11-07 00:00:00 2 [facility] Tobacco Comment 2013-09-14 00:00:00 2013-09-14 00:00:00 smoke a pack of cigarettes a day [facility] Smoking Status Start Date Stop Date Source Current every day smoker 2018-10-07 00:00:00 [facility] Medications Ordered Medication Name Filled Medication Name Start Date Stop Da te Current Medication? Ordering Clinician Indication Dosage Frequency Signature (SIG) Comments Components Source lisinopriL (PRINIVIL) 20 mg tablet 2019-07-27 00:00:00 Y es [id number] 20mg QD Take 1 tablet by mouth daily. [facility] fenofibrate nanocrystallized (TRICOR) 145 mg tablet 09-02 00:00:00 Yes [id number] 145mg QD Take 1 tablet by mouth daily. [facility] atorvastatin (LIPITOR) 40 mg tablet 2018-09-02 00:00:00 Yes [id number] 40mg Take 1 tablet by mouth at bedtime nightly For cholesterol. [facility] gabapentin (NEURONTIN) 300 mg capsule 2018-09-02 00:00:00 Yes [id number] 300mg Take 1 capsule by mouth 3 times daily For back pain. [facility] albuterol (PROVENTIL) 2.5 mg /3 mL (0.083 %) nebulizer solut ion 2018-09-02 00:00:00 Yes [id number] 2.5mg Inhale 3 mL by mouth every 6 hours as needed for Shortness of Breath. [facility] ealt hydrOXYzine (ATARAX) 25 mg tablet 2018-09-02 00:00:00 Ye s [id number] 25mg Take 1 tablet by mouth nightly at bedtime as needed for Insomnia . [facility] omeprazole (PRILOSEC) 20 mg delayed release capsule 09-02 00:00:00 Yes [id number] 20mg QD Take 1 capsule by mouth daily. [facility] sertraline (ZOLOFT) 100 mg tablet 2018-07-28 00:00:00 Ye chino [id number] 100mg QD Take 1 tablet by mouth daily. [facility] ibuprofen (MOTRIN) 800 mg tablet 2017-07-16 00:00:00 Yes [id number] 800mg Take 1 tablet by mouth every 8 hours as needed for Pain (take wi th food). [facility] albuterol (VENTOLIN HFA,PROVENTIL HFA,PROAIR HFA) 90 mcg/act uation inhaler 2017-07-16 00:00:00 Yes [id number] 2{puff} Inhale 2 Puffs by mouth 4 times daily as needed for Wheezing or Shortness of Breath. [facility] lisinopril (PRINIVIL) 20 mg tablet 2017-07-16 00:00:00 202 00:00:00 No [id number] 20mg QD Take 1 tablet by mouth daily. [facility] LONGS FISH OIL (FISH OIL) 1,000 mg cap 2015-04-26 00:00:00 Yes [id number] Take by mouth. [facility] Immunizations Ordered Immunization Name Filled Immunization Name Date Status Comments Source Influenza Vaccine, Seasonal, Injectable 2017-03-18 00:00:0 0 Completed [facility] Ketorolac 30mg/1ml Inj (x ) 2015-06-20 00:00:00 [facility] Ketorolac 30mg/1ml Inj (x ) 2015-04-26 00:00:00 Comple [facility] Influenza Vaccine 2015-04-16 00:00:00 Completed [facility] Influenza Vaccine 2014-04-13 00:00:00 [facility] Td <Unspecified> 2014-03-02 00:00:00 [facility] Procedures Procedure Date / Time Performed Performing Clinician [facility] e X-ray of chest, two views 2019-08-22 00:00:00 MIRIAM BARRIENTOS [facility] Plan of Care Planned Activity Planned Date Details Comments Source Future Scheduled Test 2020-02-03 00:00:00 IMM Influenza Seas onal Feb to July (>/= 19 yrs) [code = IMM Influenza Seasonal Feb to July (>/= 19 yrs)] [facility] Scheduled Test 2018-04-14 00:00:00 Colorectal Cancer Scrn Annual (FIT/FOBT) Age 50 to 75 [code = Colorectal Cancer Scrn Annual (FIT/FOBT) Age 50 to 75] [facility] Scheduled Test 2018-02-04 00:00:00 Breast Cancer Scrn (Yearly) [code = Breast Cancer Scrn (Yearly)] [facility] Encounters Start Date/Time End Date/Time Encounter Type [facility] Encounter ID Source 2019-04-20 00:00:00 2019-04-20 00:00:00 Outpatient [facility] [id number] [facility] 2018-12-16 00:00:00 2018-12-16 00:00:00 Outpatient [facility] [id number] [facility] 2018-10-07 00:00:00 2018-10-07 00:00:00 Outpatient [facility] [id number] [facility] 2018-10-07 00:00:00 2018-10-07 00:00:00 Outpatient [facility] [id number] [facility] 2018-09-30 00:00:00 2018-09-30 00:00:00 Outpatient [facility] [id number] [facility] 2018-09-17 00:00:00 2018-09-17 00:00:00 Outpatient [facility] [id number] [facility] 2018-09-17 00:00:00 2018-09-17 00:00:00 Outpatient [facility] [id number] [facility] 2018-09-02 08:34:37 2018-09-02 08:34:37 Outpatient [facility] [id number] [facility] 2018-01-29 00:00:00 2018-01-29 00:00:00 Outpatient [facility] [id number] [facility] 2018-01-08 00:00:00 2018-01-08 00:00:00 Outpatient [facility] [id number] [facility] 2018-01-02 00:00:00 2018-01-02 00:00:00 Outpatient [facility] [id number] [facility] 2017-12-24 00:00:00 2017-12-24 00:00:00 Outpatient [facility] [id number] [facility] 2017-12-15 00:00:00 2017-12-15 00:00:00 Outpatient [facility] [id number] [facility] 2017-11-11 09:58:27 2017-11-11 09:58:27 Outpatient [facility] [id number] [facility] 2017-11-10 10:38:54 2017-11-10 10:38:54 Outpatient [facility] [id number] [facility] 2017-11-10 00:00:00 2017-11-10 00:00:00 Outpatient [facility] [id number] [facility] 2017-11-07 15:11:30 2017-11-07 15:11:30 Outpatient [facility] [id number] [facility] 2017-10-20 00:00:00 2017-10-20 00:00:00 Outpatient [facility] [id number] [facility] 2017-10-15 00:00:00 2017-10-15 00:00:00 Outpatient [facility] [id number] [facility] 2017-10-02 08:24:21 2017-10-02 08:24:21 Outpatient [facility] [id number] [facility] 2017-08-20 00:00:00 2017-08-20 00:00:00 Outpatient [facility] [id number] [facility] 2017-07-16 14:06:19 2017-07-16 14:06:19 Outpatient [facility] [id number] [facility] 2017-07-08 13:17:33 2017-07-08 13:17:33 Outpatient [facility] [id number] [facility] 2017-06-20 13:43:17 2017-06-20 13:43:17 Outpatient [facility] [id number] [facility] 2017-05-08 00:00:00 2017-05-08 00:00:00 Outpatient [facility] [id number] [facility] 2017-04-14 12:48:34 2017-04-14 12:48:34 Outpatient [facility] [id number] [facility] 2017-03-25 00:00:00 2017-03-25 00:00:00 Outpatient [facility] [id number] [facility] 2017-03-21 08:24:14 2017-03-21 08:24:14 Outpatient [facility] [id number] [facility] 2017-03-18 15:15:55 2017-03-18 15:15:55 Outpatient [facility] [id number] [facility] 2017-02-04 14:30:38 2017-02-04 14:30:38 Outpatient [facility] [id number] [facility] 2017-02-04 14:23:16 2017-02-04 14:23:16 Outpatient [facility] [id number] [facility] 2017-02-03 00:00:00 2017-02-03 00:00:00 Outpatient [facility] [id number] [facility] 2017-01-14 00:00:00 2017-01-14 00:00:00 Outpatient [facility] [id number] [facility] 2017-01-08 14:20:34 2017-01-08 14:20:34 Outpatient [facility] [id number] [facility] 2016-12-27 00:00:00 2016-12-27 00:00:00 Outpatient [facility] [id number] [facility] 2016-12-06 00:00:00 2016-12-06 00:00:00 Outpatient [facility] [id number] [facility] 2016-11-26 00:00:00 2016-11-26 00:00:00 Outpatient [facility] [id number] [facility] 2016-11-21 00:00:00 2016-11-21 00:00:00 Outpatient [facility] [id number] [facility] 2016-11-06 00:00:00 2016-11-06 00:00:00 Outpatient [facility] [id number] [facility] 2016-09-25 14:03:17 2016-09-25 14:03:17 Outpatient [facility] [id number] [facility] 2016-09-20 00:00:00 2016-09-20 00:00:00 Outpatient [facility] [id number] [facility] 2016-09-05 10:06:06 2016-09-05 10:06:06 Outpatient [facility] [id number] [facility] 2016-08-13 14:20:25 2016-08-13 14:20:25 Outpatient [facility] [id number] [facility] 2016-07-16 08:28:51 2016-07-16 08:28:51 Outpatient [facility] [id number] [facility] 2016-07-16 08:02:10 2016-07-16 08:02:10 Outpatient [facility] [id number] [facility] 2016-07-15 14:49:54 2016-07-15 14:49:54 Outpatient [facility] [id number] [facility] Results Test Description Test Time Test Comments Results Result Comments Source - CT ABD PELVIS W/O CONT 2019-09-16 02:57:00 N adele: YAKOV QUIROZ [facility] : 1965 Age/S: 53 / F [address] Unit #: [id number] Loc: [place] [address] Phys: Rachel Turpin DO Acct: [id number] Dis Date: Status: PRE ER PHONE #: [phone] Exam Date: 09/16/2019 0240 FAX #: [phone] Reason: FLANK PAIN, R/O KIDNEY STONE EXAMS: CPT CODE: [id number] CT ABD PELVIS W/O CONT 45422 AFTER HOURS SERVICE ON: 09/16/2019 2:52 AM [...] 1 Signed Report (CONTINUED) Name: YAKOV QUIROZ [facility] : 1965 Age/S: 53 / F [address] Unit #: [id number] Loc: [place] [address] Phys: Rachel Turpin DO Acct: [id number] Dis Date: Status: PRE ER PHONE #: [phone] Exam Date: 09/16/2019 0240 FAX #: [phone] Reason: FLANK PAIN, R/O KIDNEY STONE EXAMS: CPT CODE: [id number] CT ABD PELVIS W/O CONT 24938 <Continued> at 0257 Reported and signed by: Werner Sandoval M.D. CC: Rachel Turpin DO Technologist:ANDREW GENTILE RT CTDI: DLP: Trnscb Date/Time: 09/16/2019 (256) [email or web address] Orig Print D/T: S: 09/16/2019 (0309) PAGE 2 Signed Report - CT ABD PELVIS W/O CONT 2019-09-16 02:57:00 N adele: YAKOV QUIROZ [facility] : 1965 Age/S: 53 / F [address] [facility] Unit #: [id number] Loc: [place] [address] Phys: Rachel Turpin DO Acct: [id number] Dis Date: Status: PRE ER PHONE #: [phone] Exam Date: 09/16/2019 024 FAX #: [phone] Reason: FLANK PAIN, R/O KIDNEY STONE EXAMS: CPT CODE: [id number] CT ABD PELVIS W/O CONT 51326 AFTER HOURS SERVICE ON: 09/16/2019 2:52 AM [...] 1 Signed Report (CONTINUED) [facility] 1965 Age/S: 53 / F [address] [facility] Unit #: [id number] Loc: [place] [address] Phys: Rachel Turpin DO Acct: [id number] Dis Date: Status: PRE ER PHONE #: [phone] Exam Date: 09/16/2019 0240 FAX #: [phone] Reason: FLANK PAIN, R/O KIDNEY STONE EXAMS: CPT CODE: [id number] CT ABD PELVIS W/O CONT 68166 <Continued> at 0257 Reported and signed by: Werner Sandoval M.D. CC: Rachel Turpin DO Technologist:RT KELSI CTDI: DLP: Trnscb Date/Time: 09/16/2019 (256) [email or web address] Orig Print D/T: S: 09/16/2019 (0301) PAGE 2 Signed Report - XR CHEST 1 V 2019-09-16 02:26:00 FAX: Rachel Turpin DO [place]: B St: PRE -- Name: [facility] : 1965 Age/S: 53/F [address] Unit #: [id number] Loc: [place] [address] Phys: Rachel Turpin DO Acct: [id number] Dis Date: Status: PRE ER PHONE #: [phone] Exam Date: 09/16/2019216 FAX #: [phone] Reason: CHEST PAIN EXAMS: CPT CODE: [id number] XR CHEST 1 V 35973 AFTER HOURS SERVICE ON: 09/16/2019 2:25 AM AP Portable Chest Location Code M12 HISTORY: CHEST PAIN FINDINGS: Study is limited by shallow inspiration. There are no pleural effusions. There is no pneumothorax. Cardiac silhouette and mediastinum appear within normal limits. IMPRESSION: No active pulmonary findings. at 0226 Reported and signed by: Werner Sandoval M.D. CC: Rachel Turpin DO Technologist: [facility]rano [facility] Date/Time/By: 09/16/2019 (022) : By: [email or web address] Orig Print D/T: S: 09/16/2019 (0229) PAGE 1 Signed Report CHEST 2 VIEWS 2019-08-22 21:43:00 [place] [address] Patient Name: YAKOV QUIROZ MR #: [id number] : 1965 Age/Sex: 53/F Req #: [id number] Adm Physician: Ordered by: MIRIAM BARRIENTOS UNLOAD ASSOCIATE Report #: [id number] Location: ER Room/Bed: Procedure: [id number] DX/CHEST 2 VIEWS Exam Date: 08/22/19 Exam [...] Virus Types A,B Antigen (test code = 24982-5) NEGATIVE [facility]GATIVE [facility] Streptococcus [id number] 20:23:00* Test Item Value Reference Range Interpretation Comments Group A Streptococcus Screen (test code = 32813-8) NEGATIVE NEG ATIVE [facility]- XR WRIST 3 + V [id number] 00:05:00 FAX: Lashanda Cotto NP [place]: St: REG Name: Chet BEALERYAKOV [facility] : [birth year] Age/S: 53/F [address] [facility] Unit #: [id number] Loc: [place] [address] Phys: Lashanda Cotto NP Acct: [id number] Dis Date: Status: REG ER PHONE #: [phone] Exam Date: 05/26/2019 0000 FAX #: [phone] Reason: fall, pain EXAMS: CPT CODE: [id number] XR WRIST 3 + V RT [address] LOCATION: Q15 HISTORY: 53-year-old female who suffered [...] CC: Lashanda Cotto NP Technologist: Sherley Medrano Trnohrd Date/Time/By: 05/27/2019 (0005) : By: [email or web address] Orig Print D/T: S: 05/27/2019 (0008) PAGE 1 Signed Report - XR SHOULDER 2 + V RT 2019-05-27 00:05:00 FAX: Lashanda Cotto NP [place]: St: REG Name: Chet BEALERYAKOV [facility] : [birth year] Age/S: 53/F [address] [facility] Unit #: [id number] Loc: [place] [address] Phys: Lashanda Cotto NP Acct: [id number] Dis Date: Status: REG ER PHONE #: [phone] Exam Date: 05/26/2019 0000 FAX #: [phone] Reason: fall, pain EXAMS: CPT CODE: [id number] XR SHOULDER 2 + V RT [address] LOCATION: Q15 HISTORY: 53-year-old female who suffered [...] CC: Lashanda Cotto NP Technologist: [facility] Medrano [facility] Date/Time/By: 05/27/2019 (0005) : By: [email or web address] Orig Print D/T: S: 05/27/2019 (0008) PAGE 1 Signed Report - XR KNEE 3 V [id number] 00:05:00 FAX: Lashanda Cotto NP [place]: St: REG Name: YAKOV HERNANDES [facility] : [birth year] Age/S: 53/F [address] [facility] Unit #: [id number] Loc: [place] [address] Phys: Lashanda Cotto NP Acct: [id number] Dis Date: Status: REG ER PHONE #: [phone] Exam Date: 05/26/2019 0000 FAX #: [phone] Reason: fall, pain EXAMS: CPT CODE: [id number] XR KNEE 3 [place] [address] LOCATION: Q15 HISTORY: 53-year-old female who suffered [...] CC: Lashanda Cotto NP Technologist: Sherley Medrano Trnohrd Date/Time/By: 05/27/2019 (0005) : By: [email or web address] Orig Print D/T: S: 05/27/2019 (0008) PAGE 1 Signed Report - XR SCAPULA COMP RT 2019-02-23 16:35:00 FAX: Myla Cervantes NP [place]: St: REG Name: Chet BEALERYAKOV [facility] : [birth year] Age/S: 53/F [address] Unit #: [id number] Loc: [place] [address] Phys: Myla Cervantes NP Acct: [id number] Dis Date: Status: REG ER PHONE #: [phone] Exam Date: 02/23/2019 1542 FAX #: [phone] Reason: pain status post fall EXAMS: CPT CODE: [id number] [place] [address] CLINICAL HISTORY: pain TECHNIQUE: Right-sided rib series [...] the scanned right upper extr emity. Location: [facility] at 1635 Reported and signed by: Tj Cope MD CC: Myla Cervantes NP Technologist: MELCHOR LEDBETTER RT(R); Radha Delacruz RT(R) Trnscrd Date/Time/By: 02/23/2019 (6231) : By: [email or web address] Orig Print D /T: S: 02/23/2019 (3057) PAGE 1 S igned Report - XR SHOULDER 2 + V [id number] 16:35:00 FAX: Myla Cervantes NP [place]: St: REG Name: YAKOV HERNANDES [facility] : [birth year] Age/S: 53/F [address] [facility] Unit #: [id number] Loc: [place] [address] Phys: Myla Cervantes NP Acct: [id number] Dis Date: Status: REG ER PHONE #: [phone] Exam Date: 02/23/2019 1547 FAX #: [phone] Reason: pain EXAMS: CPT CODE: [id number] XR SHOULDER 2 + V RT [address] CLINICAL HISTORY: pain TECHNIQUE: Right-sided rib series [...] the scanned right upper extr emity. Location: [facility] at 1635 Reported and signed by: Tj Cope MD CC: Myla Cervantes NP Technologist: RT GABRIEL(Lana) Trnscrd Date/Time/By: 02/23/2019 (8887) : By: [email or web address] Orig Print D /T: S: 02/23/2019 (9100) PAGE 1 S igned Report - XR RIBS UNI 2 V [id number] 16:35:00 FAX: Myla Cervantes NP [place]: St: REG Name: YAKOV HERNANDES [facility] : [birth year] Age/S: 53/F [address] [facility] Unit #: [id number] Loc: [place] [address] Phys: Myla Cervantes NP Acct: [id number] Dis Date: Status: REG ER PHONE #: [phone] Exam Date: 02/23/2019 1547 FAX #: [phone] Reason: pain EXAMS: CPT CODE: [id number] XR RIBS UNI [address] [place] [address] CLINICAL HISTORY: pain TECHNIQUE: Right-sided rib series [...] the scanned right upper extr emity. Location: [facility] at 1635 Reported and signed by: Tj Cope MD CC: Myla Cervantes NP Technologist: MELCHOR LEDBETTER, RT(R); Radha Delacruz RT(R) Trnscrd Date/Time/By: 02/23/2019 (0466) : By: [email or web address] Orig Print D /T: S: 02/23/2019 (5741) PAGE 1 S igned Report CBC W/O [id number] 22:11:00* Test Item Value Reference Range Interpretation [...] MPV) 12.4 fL 6.7-11.0 H TROPONIN I [id number] 22:07:00* Test Item Value Reference Range Interpretation [...] only if similarmethodology is used. BASIC METABOLIC [id number] 22:05:00* Test Item Value Reference Range Interpretation [...] code = CA) 9.6 mg/dL 8.5-10.1 N [id number] 22:05:00* Test Item Value Reference Range Interpretation Comments TROPONIN-I (test code = TROPI) <0.015 ng/mL 0-0.045 N BASIC METABOLIC [id number] 21:56:00* Test Item Value Reference Range Interpretation [...] code = CA) 9.6 mg/dL 8.5-10.1 N [id number] 21:56:00* Test Item Value Reference Range Interpretation Comments TROPONIN-I (test code = TROPI) ng/mL 0-0.045 - XR CHEST 1 [id number] 21:29:00 FAX: Rachel Turpin DO [place]: B St: REG Name: YAKOV HERNANDES [facility] : [birth year] Age/S: 53/F [address] [facility] Unit #: [id number] Loc: [place] [address] Phys: Rachel Turpin DO Acct: [id number] Dis Date: Status: REG ER PHONE #: [phone] Exam Date: 11/28/20182124 FAX #: [phone] Reason: CHEST PAIN EXAMS: CPT CODE: [id number] XR CHEST 1 V 15719 HISTORY: Chest pain. COMPARISON: January 17, 2018. No acute infiltrates, effusion or congestion is noted. The cardiac and mediastinal silhouette are w ithin normal limits. IMPRESSION: No acute in filtrates, effusion or congestion. at 2128 Reported and signed by: Juan Jose Yancey M.D. CC: Rachel Turpin DO Technologist: FARHAN ALMONTE(R) Trnscrd Date/Time/By: 11/28/2018 (2128) : By: [email or web address] Orig Print D/T: S: 11/28/2018 (4514) PAGE 1 Signed Report - XR T-SPINE 3 VIEWS 2018-10-12 13:24:00 FAX: Jeison Bourne MD [phone] [place]: St: REG Name: YAKOV HERNANDES [facility] : [birth year] Age/S: 52/F [address] [facility] Unit #: [id number] Loc: [place] [address] Phys: Jeison Bourne MD Acct: [id number] Dis Date: Status: REG ER PHONE #: [phone] Exam Date: 10/12/2018 1315 FAX #: [phone] Reason: back pain EXAMS: CPT CODE: [id number] XR T-SPINE 3 VIEWS 80987 HISTORY: Back pain. COMPARISON: None available. Lumbar [...] MD Technologist: RT YVONNE(R) Trnscrd Date/Time/By: 10/12/2018 (7592) : By: [email or web address] Orig Print D/T: S: 10/12/2018 (8133) PAGE 1 Signed Report - XR L-SPINE 2/3 [id number] 13:24:00 FAX: Jeison Bourne MD [phone] [place]: B St: REG Name: YAKOV HERNANDES [facility] : [birth year] Age/S: 52/F [address] [facility] Unit #: [id number] Loc: [place] [address] Phys: Jeison Bourne MD Acct: [id number] Dis Date: Status: REG ER PHONE #: [phone] Exam Date: 10/12/2018 1321 FAX #: [phone] Reason: back pain EXAMS: CPT CODE: [id number] XR L-SPINE 2/3 VIEWS 46842 HISTORY: Back pain. COMPARISON: None available. Lumbar [...] MD Technologist: RT YVONNE(R) Trnscrd Date/Time/By: 10/12/2018 (7594) : By: [email or web address] Orig Print D/T: S: 10/12/2018 (1568) PAGE 1 Signed Report - XR SHOULDER 2 + V [id number] 13:19:00 FAX: Jeison Bourne MD [phone] [place]: B St: REG Name: YAKOV HERNANDES [facility] : [birth year] Age/S: 52/F [facility] Unit #: [id number] Loc: [place] [address] Phys: Jeison Bourne MD Acct: [id number] Dis Date: Status: REG ER PHONE #: [phone] Exam Date: 10/12/2018 1305 FAX #: [phone] Reason: shoulder pain EXAMS: CPT CODE: [id number] XR SHOULDER 2 + V RT [id number] HISTORY: Shoulder pain. COMPARISON: June 13, 2017. 3 views of the right shoulder: No acute fracture or dislocation. Narrowed AC joint. The scapula, glenoid and coracoid are normal in appearance. Soft tissues are normal. Bone mineralization is normal. IMPRESSION: No acute fracture or dislocation. at 1313 Reported and signed by: Paul Yancey M.D. CC: Jeison Bourne MD Technologist: RT YVONNE(R) Trnscrd Date/Time/By: 10/12/2018 (0178) : By: [email or web address] Orig Print D/T: S: 10/12/2018 (6371) PAGE 1 Signed Report
--- NOTE | 2019-09-17 03:48 | Emergency Department Note ---
History of Present Illnes History of Present Illness Chief Complaint: Genitourinary History of Present Illness This is a 53 year old female presents with c/o left flank and lower abd pain for past 3 hours, states seen at [facility] for same yesterday and diagnosed with kidney stones, states was told she had 3 stones and needed lithotripsy, pt further states she thinks she passed one of the stones already . Historian: Patient Arrival Mode: Car Onset (how long ago): hour(s) (3) Location: left flank radiating to lower abdomen Radiation: abdomen Severity: severe Onset quality: sudden Duration (how long): hour(s) (3) Timing of current episode: constant Progression: worsening Chronicity: recurrent Relieving factors: none Exacerbating factors: none Associated symptoms: denies other symptoms Treatments prior to arrival: none Past Medical/Family History Physician Review I have reviewed the patient's past medical and family history. Any updates have been documented here. Past Medical History Recent Fever: No Clinical Suspicion of Infectio: No New/Unexplained Change in Ment: No Past Medical History: Hypertension, Anxiety, Depression, Other Mental Illness Past Surgical History: Hysterectomy Social History Smoking Cessation: Current every day smoker Counseling Performed: Yes Alcohol Use: Occasional Any Illegal Drug Use: No Family History Family history of heart diseas: No Other Last Tetanus: UNKNOWN Review of Systems Review of Systems Constitutional: no symptoms EENTM: no symptoms Cardiovascular: no symptoms Respiratory: no symptoms Gastrointestinal: no symptoms Genitourinary: as per HPI Musculoskeletal: no symptoms Neurological: no symptoms Psychological: no symptoms Endocrine: no symptoms Hematological/Lymphatic: no symptoms Review of other systems All other systems reviewed and negative. Physical Exam Related Data Allergies: Coded Allergies: morphine (Verified Allergy, Intermediate, RASH, 09/17/19) Triage Vital Signs Vital Signs Date Time Temp Pulse Resp B/P (MAP) Pulse Ox O2 Delivery O2 Flow Rate FiO2 09/17/19 03:29 98.6 103 20 136/76 100 Vital signs reviewed: Yes Physical Exam CONSTITUTIONAL Constitutional: well-developed, well-nourished HENT HENT: normocephalic, atraumatic, oropharynx clear/moist, nose normal HENT L/R: left ext ear normal, right ext ear normal EYES Eyes: PERRL, conjunctivae normal NECK Neck: ROM normal PULMONARY Pulmonary: effort normal, breath sounds normal CARDIOVASCULAR Cardiovascular: regular rhythm, heart sounds normal, capillary refill normal, tachycardia (103) GASTROINTESTINAL Abdominal: soft, nontender, bowel sounds normal, tender (mild supra pubic), left CVA tenderness (mild) GENITOURINARY Genitourinary: exam deferred SKIN Skin: warm, dry MUSCULOSKELETAL Musculoskeletal: ROM normal NEUROLOGICAL Neurological: alert, oriented x 3, no gross motor or sensory deficits PSYCHOLOGICAL Psychological: mood/affect normal, judgement normal Results Laboratory Laboratory Laboratory Tests Test 09/17/19 04:00 White Blood Count 20.44 x10e3/uL (4.8-10.8) Red Blood Count 4.21 x10e6/uL (3.6-5.1) Hemoglobin 11.8 g/dL (12.0-16.0) Hematocrit 36.8 % (34.2-44.1) Mean Corpuscular Volume 87.4 fL (81-99) Mean Corpuscular Hemoglobin 28.0 pg (28-32) Mean Corpuscular Hemoglobin Concent 32.1 g/dL (31-35) Red Cell Distribution Width 14.3 % (11.7-14.4) Platelet Count 263 x10e3/uL (140-360) Neutrophils (%) (Auto) 79.6 % (38.7-80.0) Lymphocytes (%) (Auto) 9.6 % (18.0-39.1) Monocytes (%) (Auto) 9.1 % (4.4-11.3) Eosinophils (%) (Auto) 0.4 % (0.0-6.0) Basophils (%) (Auto) 0.4 % (0.0-1.0) Neutrophils # (Auto) 16.3 (2.1-6.9) Lymphocytes # (Auto) 2.0 (1.0-3.2) Monocytes # (Auto) 1.9 (0.2-0.8) Eosinophils # (Auto) 0.1 (0.0-0.4) Basophils # (Auto) 0.1 (0.0-0.1) Absolute Immature Granulocyte (auto 0.18 x10e3/uL (0-0.1) Urine Color Yellow (YELLOW) Urine Clarity Cloudy (CLEAR) Urine pH 6.5 (5 - 7) Urine Specific [place] 1.020 (1.010-1.025) Urine Protein 2+ (NEGATIVE) Urine Glucose (UA) Negative (NEGATIVE) Urine Ketones Negative (NEGATIVE) Urine Blood 2+ (NEGATIVE) Urine Nitrite Positive (NEGATIVE) Urine Bilirubin Negative (NEGATIVE) Urine Urobilinogen 0.2 mg/dL (0.2 - 1) Urine Leukocyte Esterase Trace (NEGATIVE) Urine RBC 0-5 /HPF (0-5) Urine WBC 21-50 /HPF (0-5) Urine Epithelial Cells Few /LPF (NONE) Urine Bacteria Many /HPF (NONE) Sodium Level 138 mmol/L (136-145) Potassium Level 4.0 mmol/L (3.5-5.1) Chloride Level 105 mmol/L (98-107) Carbon Dioxide Level 23 mmol/L (22-29) Anion Gap 14.0 mmol/L (8-16) Blood Urea Nitrogen 16 mg/dL (7-26) Creatinine 0.83 mg/dL (0.57-1.11) Estimat Glomerular Filtration Rate > 60 ML/MIN (60-) BUN/Creatinine Ratio 19 (6-25) Glucose Level 123 mg/dL (74-118) Calcium Level 9.3 mg/dL (8.4-10.2) Lab results reviewed: Yes Laboratory comments pt with uti and 20K wbc Imaging Imaging results reviewed: Yes Impressions Procedure: [id number] CT/CT ABDOMEN/PELVIS WO Exam Date: 09/17/19 Exam Time: 0345 REPORT STATUS: Signed EXAM: CT Abdomen and Pelvis WITHOUT contrast INDICATION: Flank pain COMPARISON: None. TECHNIQUE: Abdomen and pelvis were scanned utilizing a multidetector helical scanner from the lung base to the pubic symphysis without administration of IV contrast. Absence of intravenous contrast decreases sensitivity for detection of focal lesions and vascular pathology. Coronal and sagittal reformations were obtained. Routine protocol was performed. IV CONTRAST: None ORAL CONTRAST: None COMPLICATIONS: None RADIATION DOSE: Total DLP: 364 mGy*cm Estimated effective dose: (DLP x 0.015 x size factor) mSv CTDIvol has been reviewed. It is below the limits set by the Radiation Protocol Committee (RPC). Dose modulation, iterative reconstruction, and/or weight based adjustment of the mA/kV was utilized to reduce the radiation dose to as low as reasonably achievable. FINDINGS: LINES and TUBES: None. LOWER THORAX: Unremarkable HEPATOBILIARY: No focal hepatic lesions. No biliary ductal dilation. GALLBLADDER: No radio-opaque stones or sludge. No wall thickening. SPLEEN: No splenomegaly. PANCREAS: No focal masses or ductal dilatation. ADRENALS: No adrenal nodules KIDNEYS/URETERS: Punctate nonobstructing left intrarenal calculus. Moderate left perinephric fat stranding. No obstructing renal or ureteral calculus. No obvious renal mass. No hydronephrosis. GI TRACT: No abnormal distention, wall thickening, or evidence of bowel obstruction. Appendix is normal. PELVIC ORGANS/BLADDER: The uterus is surgically absent. The urinary bladder contains air. LYMPH NODES: Prominent subcentimeter retroperitoneal lymph nodes, possibly reactive. VESSELS: Aortoiliac atherosclerosis. PERITONEUM / RETROPERITONEUM: No free air or fluid. BONES: No acute osseous abnormality. SOFT TISSUES: Unremarkable. IMPRESSION: 1. Punctate nonobstructing left intrarenal calculus. No obstructive uropathy. 2. Nonspecific left perinephric inflammatory change. Differential considerations include pyelonephritis and a recently passed stone. 3. Air within the urinary bladder. Differential considerations include cystitis and recent catheterization. Signed by: Robson Berkowitz MD on 09/17/2019 4:20 AM Dictated By: ROBSON BERKOWITZ MD 9 Transcribed By: BASHIR on 09/17/19419 COPY TO: JESSENIA FONTAINE MD~ Critical Care Time Subsequent provider I assumed direction of critical care for this patient from another provider of my specialty. Assessment & Plan Assessment & Plan Problems: (1) Pyelonephritis Assessment & Plan pt with reported kidney stones presents with left flank pain radiating to lower abd. cbc. bmp, ua, ct abd/pelvis ordered to eval for uti, hematuria, kidney stones, electrolyte abnormality toradol 30 mg iv ordered zofran 4 mg iv ordered pt found to have pyelonephritis, i explained to pt i would like to admit her for iv antibiotics, pt states she does not want to be admitted and wants to be discharged with antibiotics rocephin 1 gram iv ordered pt will be discharged home with the following prescriptions omnicef 300 mg po bid for 10 days pyrdium 200 mg po tid for 3 days Reassessment Reassessment time: 05:06 Reassessment pt pain is better after toradol Depart Disposition: HOME, SELF-CARE Last Vital Signs Date Time Temp Pulse Resp B/P (MAP) Pulse Ox O2 Delivery O2 Flow Rate FiO2 09/17/19 03:29 98.6 103 20 136/76 100 Medications in the ED Ketorolac Tromethamine 30 mg ONCE STAT IV ; Start 09/17/19 at 03:30; Stop 09/17/19 at 03:35; Status DC Ondansetron HCl 4 mg NOW STAT IV ; Start 09/17/19 at 03:30; Stop 09/17/19 at 03:35; Status DC JESSENIA FONTAINE MD September 17, 2019 03:48
--- NOTE | 2019-09-17 04:24 | Diagnostic Imaging Report ---
EXAM: CT Abdomen and Pelvis WITHOUT contrast INDICATION: Flank pain COMPARISON: None. TECHNIQUE: Abdomen and pelvis were scanned utilizing a multidetector helical scanner from the lung base to the pubic symphysis without administration of IV contrast. Absence of intravenous contrast decreases sensitivity for detection of focal lesions and vascular pathology. Coronal and sagittal reformations were obtained. Routine protocol was performed. IV CONTRAST: None ORAL CONTRAST: None COMPLICATIONS: None RADIATION DOSE: Total DLP: 364 mGy*cm Estimated effective dose: (DLP x 0.015 x size factor) mSv CTDIvol has been reviewed. It is below the limits set by the Radiation Protocol Committee (RPC). Dose modulation, iterative reconstruction, and/or weight based adjustment of the mA/kV was utilized to reduce the radiation dose to as low as reasonably achievable. FINDINGS: LINES and TUBES: None. LOWER THORAX: Unremarkable HEPATOBILIARY: No focal hepatic lesions. No biliary ductal dilation. GALLBLADDER: No radio-opaque stones or sludge. No wall thickening. SPLEEN: No splenomegaly. PANCREAS: No focal masses or ductal dilatation. ADRENALS: No adrenal nodules KIDNEYS/URETERS: Punctate nonobstructing left intrarenal calculus. Moderate left perinephric fat stranding. No obstructing renal or ureteral calculus. No obvious renal mass. No hydronephrosis. GI TRACT: No abnormal distention, wall thickening, or evidence of bowel obstruction. Appendix is normal. PELVIC ORGANS/BLADDER: The uterus is surgically absent. The urinary bladder contains air. LYMPH NODES: Prominent subcentimeter retroperitoneal lymph nodes, possibly reactive. VESSELS: Aortoiliac atherosclerosis. PERITONEUM / RETROPERITONEUM: No free air or fluid. BONES: No acute osseous abnormality. SOFT TISSUES: Unremarkable. IMPRESSION: 1. Punctate nonobstructing left intrarenal calculus. No obstructive uropathy. 2. Nonspecific left perinephric inflammatory change. Differential considerations include pyelonephritis and a recently passed stone. 3. Air within the urinary bladder. Differential considerations include cystitis and recent catheterization. Signed by: Tristen Loredo MD on 09/17/2019 4:20 AM
[2019-09-17 04:31] LABS: CLARITY,URINE CLOUDY (CLEAR); COLOR,URINE YELLOW (YELLOW); KETONES,URINE NEGATIVE (NEGATIVE); LEUKOCYTE ESTERASE ,URINE TRACE (NEGATIVE); NITRITE,URINE POSITIVE (NEGATIVE); PROTEIN,URINE DIPSTICK 2+ (NEGATIVE)
[2019-09-17 04:32] LABS: BILIRUBIN,URINE NEGATIVE (NEGATIVE); URINE UROBILINOGEN 0.2 mg/dL (0.2 - 1)
[2019-09-17 04:40] LABS: BACTERIA,URINE MANY /HPF; EPITHELIAL CELLS,URINE FEW /LPF; RBC,URINE 0-5 /HPF (0-5); WBC,URINE (MAN) 21-50 /HPF (0-5)
[2019-09-17 04:43] LABS: BLOOD UREA NITROGEN 16 mg/dL (7-26); BUN/CREATININE RATIO 19 (6-25); CALCIUM 9.3 mg/dL (8.4-10.2); CARBON DIOXIDE 23 mmol/L (22-29); CHLORIDE 105 mmol/L (98-107); CREATININE, SERUM 0.83 mg/dL (0.57-1.11); EST GLOMERULAR FILTRATION RATE > 60 ML/MIN (60-); GLUCOSE 123 mg/dL (74-118); SODIUM 138 mmol/L (136-145)
[2019-09-17] MEDS ORDERED: CEFTRIAXONE SOD 1 GM/NS 50 ML 50 ML IV ONE (04:45)
[2019-09-17 05:06] LABS: BASOPHILS # (AUTO) 0.1 (0.0-0.1); BASOPHILS % 0.4 % (0.0-1.0); EOSINOPHILS # (AUTO) 0.1 (0.0-0.4); EOSINOPHILS % 0.4 % (0.0-6.0); HEMATOCRIT 36.8 % (34.2-44.1); HEMOGLOBIN 11.8 g/dL (12.0-16.0); LYMPHOCYTES % 9.6 % (18.0-39.1); MEAN CORPUSCULAR HGB CONC 32.1 g/dL (31-35); MEAN CORPUSCULAR VOLUME 87.4 fL (81-99); MONOCYTES # (AUTO) 1.9 (0.2-0.8); MONOCYTES % 9.1 % (4.4-11.3); NEUTROPHILS # (AUTO) 16.3 (2.1-6.9); NEUTROPHILS % 79.6 % (38.7-80.0); PLATELET COUNT 263 x10e3/uL (140-360); RED BLOOD COUNT 4.21 x10e6/uL (3.6-5.1); RED CELL DISTRIBUTION WIDTH 14.3 % (11.7-14.4)
== END 2019-09-17 06:13 | disposition home or self-care (01) ==
LOC: ER 03:29
DX: R10.30 Lower abdominal pain, unspecified (principal); R31.9 Hematuria, unspecified; M54.5 Low back pain; N20.0 Calculus of kidney; I10 Essential (primary) hypertension; F41.9 Anxiety disorder, unspecified; F17.210 Nicotine dependence, cigarettes, uncomplicated
CPT/HCPCS: 36415; 74176; 80048; 81001; 85025; 96374; 99284; J0696; J1885; J2405

== ENCOUNTER 2023-11-27 22:13 | Emergency (ER) | payer OTHER ==
[~2023-11-27] VITALS: Ht 167.6 cm; Wt 62.6 kg
[~2023-11-27 22:13] MED LIST: AMOX TR-K CLV1 EAC2 PO; ULTRAM 50MG50 MG PO
[2023-11-27] MEDS ORDERED: SODIUM CHLORIDE 0.9% 100 ML ONE (22:38)
[2023-11-27] MEDS ORDERED: IOPAMIDOL 370 MG/ML 100 ML INFUS..BTL INJ ONE (22:38)
[2023-11-27 22:43] LABS: BASOPHILS # (AUTO) 0.1 (0.0-0.1); BASOPHILS % 0.6 % (0.0-1.0); EOSINOPHILS # (AUTO) 0.2 (0.0-0.4); EOSINOPHILS % 1.6 % (0.0-6.0); HEMATOCRIT 44.2 % (34.2-44.1); HEMOGLOBIN 13.9 g/dL (12.0-16.0); LYMPHOCYTES # (AUTO) 3.1 (1.0-3.2); LYMPHOCYTES % 24.8 % (18.0-39.1); MEAN CORPUSCULAR HEMOGLOBIN 28.3 pg (28-32); MEAN CORPUSCULAR HGB CONC 31.4 g/dL (31-35); MEAN CORPUSCULAR VOLUME 89.8 fL (81-99); NEUTROPHILS % 64.4 % (38.7-80.0); PLATELET COUNT 249 x10e3/uL (140-360); RED BLOOD COUNT 4.92 x10e6/uL (3.6-5.1); RED CELL DISTRIBUTION WIDTH 14.3 % (11.7-14.4); WHITE BLOOD COUNT 12.38 x10e3/uL (4.8-10.8)
[2023-11-27 23:01] LABS: ALBUMIN/GLOBULIN RATIO 1.1 (0.8-2.0); ANION GAP 17.3 mmol/L (8-16); BILIRUBIN,TOTAL 0.2 mg/dL (0.2-1.2); CALCIUM 9.3 mg/dL (8.4-10.2); CREATININE, SERUM 1.08 mg/dL (0.57-1.11); POTASSIUM 4.3 mmol/L (3.5-5.1); TOTAL PROTEIN 7.8 g/dL (6.5-8.1)
[2023-11-27] MEDS: SODIUM CHLORIDE 0.9% 1000ML 1,000 ML IV STA (23:19)
[2023-11-27] MEDS: HYDRALAZINE HCL 20 MG/ML VIAL IV STA (23:20)
[2023-11-28] MEDS ORDERED: LISINOPRIL-HCT1 EAC1 PO (01:51)
[2023-11-28] MEDS ORDERED: PANTOPRAZOLE SO40 MG PO (01:51)
[2023-11-28 02:00] VITALS: BP 222/102
[2023-11-28] MEDS: HYDRALAZINE HCL 20 MG/ML VIAL IV STA (02:00)
[2023-11-28 02:02] VITALS: PULSE 89; RESP 16; TEMP 98.2; O2SAT 100
== END 2023-11-28 02:05 | disposition home or self-care (01) ==
LOC: ER 22:28
DX: R10.13 Epigastric pain (principal); I16.0 Hypertensive urgency; Z91.148 Patient's other noncompliance with medication regimen for other reason; I71.40 Abdominal aortic aneurysm, without rupture, unspecified; N20.0 Calculus of kidney
CPT/HCPCS: 36415; 71275; 74174; 80053; 83690; 85025; 99284; J0360 ×2; J7030; J7050; Q9967

== ENCOUNTER 2024-02-26 16:29 | Emergency (ER) | payer OTHER ==
[~2024-02-26] VITALS: Ht 167.6 cm; Wt 62.6 kg
[~2024-02-26 16:29] MED LIST changes: +LISINOPRIL-HCT1 EAC1 PO; +PANTOPRAZOLE SO40 MG PO
[2024-02-26 16:35] VITALS: TEMP 98
[2024-02-26 17:24] LABS: BASOPHILS # (AUTO) 0.1 (0.0-0.1); BASOPHILS % 0.8 % (0.0-1.0); EOSINOPHILS # (AUTO) 0.2 (0.0-0.4); EOSINOPHILS % 1.2 % (0.0-6.0); HEMATOCRIT 43.7 % (34.2-44.1); HEMOGLOBIN 13.4 g/dL (12.0-16.0); LYMPHOCYTES # (AUTO) 3.7 (1.0-3.2); LYMPHOCYTES % 23.8 % (18.0-39.1); MEAN CORPUSCULAR HEMOGLOBIN 27.7 pg (28-32); MEAN CORPUSCULAR HGB CONC 30.7 g/dL (31-35); MEAN CORPUSCULAR VOLUME 90.5 fL (81-99); MONOCYTES # (AUTO) 1.3 (0.2-0.8); MONOCYTES % 8.2 % (4.4-11.3); NEUTROPHILS # (AUTO) 10.3 (2.1-6.9); NEUTROPHILS % 65.6 % (38.7-80.0); PLATELET COUNT 251 x10e3/uL (140-360); RED BLOOD COUNT 4.83 x10e6/uL (3.6-5.1); RED CELL DISTRIBUTION WIDTH 14.4 % (11.7-14.4); WHITE BLOOD COUNT 15.62 x10e3/uL (4.8-10.8)
[2024-02-26 17:30] LABS: INR 0.91; PROTHROMBIN TIME 12.7 seconds (11.9-14.5)
[2024-02-26 17:31] LABS: PARTIAL THROMBOPLASTIN TIME 29.3 seconds (23.8-35.5)
[2024-02-26 17:40] LABS: ALANINE AMINOTRANSFERASE 18 IU/L (0-55); ALBUMIN 4.2 g/dL (3.5-5.0); ALBUMIN/GLOBULIN RATIO 1.3 (0.8-2.0); ALKALINE PHOSPHATASE 100 IU/L (40-150); ANION GAP 19.1 mmol/L (8-16); BILIRUBIN,TOTAL 0.6 mg/dL (0.2-1.2); BLOOD UREA NITROGEN 26 mg/dL (7-26); BUN/CREATININE RATIO 19 (6-25); CALCIUM 10.2 mg/dL (8.4-10.2); CARBON DIOXIDE 25 mmol/L (22-29); CHLORIDE 108 mmol/L (98-107); CREATINE KINASE 227 IU/L (29-168); CREATININE, SERUM 1.38 mg/dL (0.57-1.11); EST GLOMERULAR FILTRATION RATE 45 ML/MIN (>=60); GLUCOSE 102 mg/dL (74-118); SODIUM 147 mmol/L (136-145); TOTAL PROTEIN 7.5 g/dL (6.5-8.1)
[2024-02-26 17:42] LABS: POTASSIUM 5.1 mmol/L (3.5-5.1)
[2024-02-26] MEDS: HYDRALAZINE HCL 20 MG/ML VIAL IV STA (17:43)
[2024-02-26 18:00] VITALS: PULSE 77; RESP 16
[2024-02-26 18:07] LABS: TROPONIN I < 0.05 ng/mL (0.0-0.40)
[2024-02-26] MEDS ORDERED: SODIUM CHLORIDE 0.9% 100 ML ONE (18:37)
[2024-02-26] MEDS ORDERED: IOPAMIDOL 370 MG/ML 100 ML INFUS..BTL INJ ONE (18:37)
[2024-02-26] MEDS: SODIUM CHLORIDE 0.9% 1000ML 1,000 ML IV STA (19:33)
[2024-02-26] MEDS: ACETAMINOPHEN 325 MG TAB PO STA (19:34)
[2024-02-26 19:40] VITALS: BP 197/92; O2SAT 99
== END 2024-02-26 19:35 | disposition home or self-care (01) ==
LOC: ER 18:00
DX: R07.89 Other chest pain (principal); I10 Essential (primary) hypertension; F43.29 Adjustment disorder with other symptoms; Z91.148 Patient's other noncompliance with medication regimen for other reason; R11.0 Nausea; R51.9 Headache, unspecified; Z87.442 Personal history of urinary calculi; Z86.79 Personal history of other diseases of the circulatory system
CPT/HCPCS: 36415; 70450; 71045; 71260; 74174; 80053; 82550; 84484; 85025; 85610; 85730; 93005; 99284; J0360; J7030; J7050; Q9967

== ENCOUNTER 2024-06-04 20:01 | Emergency (ER) | payer OTHER ==
[~2024-06-04] VITALS: Ht 170.2 cm; Wt 71.2 kg
[2024-06-04 20:34] VITALS: TEMP 98.5
[2024-06-04 20:46] LABS: BASOPHILS # (AUTO) 0.1 (0.0-0.1); BASOPHILS % 0.8 % (0.0-1.0); EOSINOPHILS # (AUTO) 0.2 (0.0-0.4); EOSINOPHILS % 1.6 % (0.0-6.0); HEMATOCRIT 41.5 % (34.2-44.1); HEMOGLOBIN 13.2 g/dL (12.0-16.0); LYMPHOCYTES # (AUTO) 3.4 (1.0-3.2); LYMPHOCYTES % 25.8 % (18.0-39.1); MEAN CORPUSCULAR HEMOGLOBIN 27.6 pg (28-32); MEAN CORPUSCULAR HGB CONC 31.8 g/dL (31-35); MEAN CORPUSCULAR VOLUME 86.6 fL (81-99); MONOCYTES % 7.6 % (4.4-11.3); NEUTROPHILS # (AUTO) 8.4 (2.1-6.9); NEUTROPHILS % 63.7 % (38.7-80.0); PLATELET COUNT 282 x10e3/uL (140-360); RED BLOOD COUNT 4.79 x10e6/uL (3.6-5.1); RED CELL DISTRIBUTION WIDTH 14.4 % (11.7-14.4); WHITE BLOOD COUNT 13.11 x10e3/uL (4.8-10.8)
[2024-06-04 21:18] LABS: ALBUMIN 3.8 g/dL (3.5-5.0); ALBUMIN/GLOBULIN RATIO 1.1 (0.8-2.0); ANION GAP 17.4 mmol/L (8-16); BILIRUBIN,TOTAL 0.2 mg/dL (0.2-1.2); CALCIUM 9.7 mg/dL (8.4-10.2); CREATININE, SERUM 1.1 mg/dL (0.57-1.11); POTASSIUM 4.4 mmol/L (3.5-5.1); TOTAL PROTEIN 7.2 g/dL (6.5-8.1)
[2024-06-04 21:23] LABS: TROPONIN I 0.018 ng/mL (0-0.300)
[2024-06-04 23:15] VITALS: PULSE 78; RESP 20
[2024-06-04 23:32] VITALS: BP 174/82; O2SAT 97
== END 2024-06-04 23:34 | disposition home or self-care (01) ==
LOC: ER 20:06
DX: R06.02 Shortness of breath (principal); R07.89 Other chest pain; R42 Dizziness and giddiness; I10 Essential (primary) hypertension; E78.5 Hyperlipidemia, unspecified; I71.40 Abdominal aortic aneurysm, without rupture, unspecified; F41.9 Anxiety disorder, unspecified; F32.A Depression, unspecified
CPT/HCPCS: 36415; 71275; 74174; 80053; 80320; 82550; 83690; 83880; 84484; 85025; 93005; 99284